=== PATIENT | male | born 1985 | race Caucasian/White ===

== ENCOUNTER 2016-11-16 22:48 | Emergency (ER) | payer OTHER ==
--- NOTE | 2016-11-17 00:27 | DIAGNOSTIC IMAGING REPORT ---
PROCEDURE: XR CHEST 2 VIEW INDICATION: CHEST PAIN TECHNIQUE: PA and lateral view. COMPARISON: Chest x-ray 04/13/2016. FINDINGS: Lungs are clear. Cardiovascular structures are normal. Bony thorax is unremarkable. No significant interval change. IMPRESSION: 1. Negative chest.
--- NOTE | 2016-11-17 02:06 | ED ORDER SUMMARY ---
..... 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 ) (23:00 11/16/2016 Maia Sadler) (Cancelled: Duplicate Order23:05 Maia Sadler) CBC w Diff Urgent (23:01 11/16/2016 Maia Sadler) (23:01 Latonia R.N.) CMP Urgent (23:11/16/2016 Maia Sadler) (23:01 Latonia R.N.) UA-Culture if indicated Urgent (23:01 11/16/2016 Maia Sadler) (Ack 23:08 AMcQuoid ER Tech1) (23:30 AMcQuoid ER Tech1) PT with INR Urgent (23:01 11/16/2016 Maia Sadler) (23:01 Laotnia R.N.) PTT Urgent (23:01 11/16/2016 Maia Sadler) (23:01 REMIGIOnebel R.N.) Urine Drug Screen Urgent (23:01 11/16/2016 Maia Sadler) (Ack 23:08 AMcQuoid ER Tech1) (23:30 AMcQuoid ER Tech1) Ethyl Alcohol Urgent (23:01 11/16/2016 Maia Sadler) (23:01 REMIGIOnebel R.N.) Type & Screen Urgent (23:01 11/16/2016 Maia Sadler) (23:01 REMIGIOnebel R.N.) (Cancelled: Other23:09 AMcQuoid ER Tech1) Pulse oximeter (23:01 11/16/2016 Maia Sadler) (23:07 REMIGIOnebel R.N.) Supervisor Hand Workers (Continuous) (dizziness) (23:05 11/16/2016 Maia Sadler) (23:07 REMIGIOnebel R.N.) Chest 2V Urgent (23:41 11/16/2016 Maia Sadler) (Ack 23:43 AMcQuoid ER Tech1) (0:11 AMcQuoid ER Tech1) Troponin-I Urgent (23:41 11/16/2016 Maia Sadler) (23:43 AMcQuoid ER Tech1) EKG - ER Stat (23:41 11/16/2016 Maia Sadler) (Ack 23:43 AMcQuoid ER Tech1) (23:50 IJurca ER Tech1) D-Dimer Urgent (23:49 11/16/2016 Maia Sadler) (23:54 AMcQuoid ER Tech1) Troponin-I (redraw 2 hours after first draw) Urgent (00:30 11/17/2016 Maia Sadler) (Ack 0:38 AMcQuoid ER Tech1) (1:06 AMcQuoid ER Tech1) MEDICATION ORDERS: Meclizine PO 25 mg (NOW) (01:16 11/17/2016 Maia Sadler) (Ack 1:18 HSoule) (1:21 HSoule) IV FLUIDS: IV NS : initial bolus 1000 mL (1000 mL/hr), then none - for X1 (NOW) (23:01 11/16/2016 Maia Sadler) (23:07 Latonia R.NBobby) IV NS : initial bolus 1000 mL (1000 mL/hr), then none - for X1 (NOW) (23:41 11/16/2016 Maia Sadler) (Ack 23:42 HSoule) (23:52 HSoule) ORDER SHEET NOTES: [Electronically signed by Joy Harris R.N. (02:21 11/17/2016)] [Electronically signed by Carroll Roberts Dr. (16:31 11/21/2016)] [Electronically locked/signed by Joy Harris R.N. (02:11/17/2016)]
--- NOTE | 2016-11-17 02:06 | ED NURSING NOTES ---
Clinical Report - Nurses [facility] [address] [place] [address] 11/16/2016 22:50 Patient: ALEXY MCKINNEY TRIAGE Triage time 22:52 Nov 16 2016. Acuity: LEVEL 3. Chief Complaint: WEAKNESS. Alert. No acute distress. SEPSIS SCREEN: Sepsis Screen: negative. Negative (no infection suspected/documented). ZACH COMA SCORE: [place] Coma Scale: 15- eyes open spontaneously (4); best verbal response- oriented x 4 (5); best motor response- obeys commands (6). --22:57 Lolly Braxton R.N. 22:52 11/16/16. BP: 121/65. HR: 104. RR: 16. O2 saturation: 97%. Temp: 99.8 F. Pain level now: 12/04. --22:57 Lolly Braxton R.N. Weight: 117.9 kg stated. Height/Length: 68 inches Per Patient. BMI: 39.5. --22:56 Lolly Braxton R.N. Medications Vicodin Oral. --22:53 Lolly Braxton R.N. Paxil Oral. --22:53 Lolly Braxton R.N. Cymbalta Oral. --22:53 Lolly Braxton R.N. Gabapentin Oral. --22:53 Lolly Braxton R.N. Atenolol Oral. --22:53 Lolly Braxton R.N. Allergies None. --22:54 Lolly Braxton R.N. History Arrived by EMS. Historian: patient. This started just prior to arrival. He has had dizziness. Treatment MAINTENANCE SUPERINTENDENT: None. PAST MEDICAL HX: Immunizations: up-to-date. SOCIAL HX: Former smoker, end date 2003. Occasional alcohol use. No drug use. No infectious disease exposure. SELF HARM ASSESSMENT: A self harm assessment was performed. The patient answered "no" to the question "Do you have thoughts of harming or killing yourself?". FALL RISK ASSESSMENT: Fall risk assessment completed. No fall risk identified. NUTRITIONAL RISK ASSESSMENT: The nutritional risk assessment revealed no deficiencies. FUNCTIONAL ASSESSMENT: Functional assessment: no impairments noted. LEARNING NEEDS ASSESSMENT: The learning needs assessment revealed no barriers. ABUSE ASSESSMENT: Abuse assessment: The patient was asked "Do you feel safe in your home?". SKIN INTEGRITY ASSESSMENT: Skin integrity risk assessment completed. No skin integrity risk identified. --22:57 Lolly Braxton R.N. PROBLEMS: Diarrhea. Lifestyle / Substance Problems. Gastroesophageal Reflux. Suicidal Ideation. Atypical Chest Pain. Chest Pain of GI Origin. Mental Illness. Anxiety Reaction. Palpitations. Chest Pain. Dizziness. Abdominal Pain. Abd pain discomfort . Depression. Obsessive Compulsive Disorder. ADHD - Attention Deficit Hyperactivity Disorder. Back Pain. --22:54 Lolly Braxton R.N. ADDITIONAL SURGERIES: Appendectomy. Septoplasty. Tendon lengthening in rt leg. --22:54 Lolly Braxton R.N. Interventions ID band on patient. To room. --22:57 Lolly Braxton R.N. PHYSICAL ASSESSMENT GENERAL / NEURO / PSYCH: Oriented X 4. Appears anxious. Speech normal. Mood/affect normal. HEENT: No facial asymmetry noted. RESPIRATORY: Respirations not labored. CVS: Capillary refill less than 2 seconds. SKIN: Skin is warm but moist. --22:57 Lolly Braxton R.N. NURSING PROGRESS NOTES 22:58 11/16/2016 Site #1 started via IV in the left antecubital space with an 20g angiocath, with aseptic technique and good blood return; one attempt. Blood drawn: rainbow set. Labeled in the presence of the patient and sent to the lab. Saline lock flushed with 10 mL saline. --22:58 Lolly Braxton R.N. Patient gowned. Head of bed elevated. Patient identifiers checked. Call light placed in reach. Side rails up x 1. Bed placed in lowest position. Brakes of bed on. --22:58 Lolly Braxton R.N. 23:07 11/16/2016 Started bag #1 1000 mL IV Fluids IV NS (Saline); bolus of 1000 mL over 1 hour(s) via site #1. Allergies verified and confirmed 5 rights. IV patency established. IV site checked: no pain, redness, or swelling. IV flushed thoroughly pre- and post-medication administration. --23:07 Lolly Braxton R.N. Care transferred and report given (Alise HUTTON). --23:13 Lolly Braxton R.N. 23:30. Checked patient name and birthdate urine collected; sample sent to lab. Specimen labeled in the presence of the patient (patient voided 500 mL per urinal). --23:30 Carole Moya, ER Tech1 EKG time: (9). EKG was ordered, performed by a tech and shown to the ED physician. --23:49 Jarvis Rodarte ER Tech1 23:00 11/16/2016 Started bag #1 1000 mL IV Fluids IV NS (Saline); at 1000 mL/hr over 1 hour(s) via site #1. Allergies verified and confirmed 5 rights. IV patency established. IV site checked: no pain, redness, or swelling. IV flushed thoroughly pre- and post-medication administration. --23:52 Alise Jose 00:08. Patient transported to radiology by stretcher with tech. --00:08 McCaorle Leblanc, ER Tech1 00:11. Patient returned from radiology by stretcher with tech. --00:11 Nita Carole, ER Tech1 00:13 11/17/16. BP: 108/58. HR: 100. RR: 20. O2 saturation: 98% on room air. --00:13 Alise Jose 01:00. Checked patient name and birthdate: patient confirmed. Blood samples drawn from the right antecubital space by tech per protocol ; labeled in presence of the patient and sent to lab: ann marie cordova. --01:06 Carole Moya, ER Tech1 00:05 11/17/2016 IV Fluids IV NS Discontinued: bag #1 completed. Total amount infused: 1000 mL. IV patency established. IV site checked: no pain, redness, or swelling. IV flushed thoroughly. --01:22 Alise Jose 00:05 11/17/2016 IV Fluids IV NS Discontinued: bag #1 STOPPED. Total amount infused: 1000 mL. IV patency established. IV site checked: no pain, redness, or swelling. IV flushed thoroughly. --02:17 Joy Harris R.N. 01:21 11/17/2016 Meclizine PO Tablets 25 mg given. Allergies verified, confirmed 5 rights and sedative warning given to the patient. --01:21 RebecaEmmanuel waynenah 01:22 11/17/16. BP: 101/64. HR: 100. RR: 20. O2 saturation: 94% on room air. --01:22 Alise Jose. DISPOSITION / DISCHARGE 02:13 11/17/2016 Site #1 removed upon discharge. Catheter intact. Manual pressure and bandage applied. --02:18 Joy Harris R.N. Departure time: 212. Condition at departure: improved. No learning barriers present. Discharge instructions provided and reviewed with the patient. Patient verbalized understanding. Written instructions provided in Bruneian. The patient was discharged by the physician. He was discharged home. He left the Emergency Department ambulatory and via (ambulatory). Patient driving. --02:21 Joy Harris R.N. 02:17 11/17/16. BP: 99/59. HR: 94. RR: 16. O2 saturation: 96% on room air. Temp: deferred. Pain level now: 0/10. --02:21 Joy Harris R.N. Locked/Released at 11/17/2016 2:21 by Joy Harris R.N.
--- NOTE | 2016-11-17 02:06 | ED CLINICAL REPORT ---
Clinical Report - Physicians/Mid Levels [facility] [address] [place] [address] 11/16/2016 22:50 Patient: ALEXY MCKINNEY Time Seen: 2255. Arrived- By private vehicle. Historian- patient. HISTORY OF PRESENT ILLNESS Chief Complaint: CHEST PAIN. At its maximum, severity described as mild. When seen in the E.D., severity described as mild. Modifying factors. Not worsened by anything. Not relieved by anything. It is described as pressure and it is described as located in the central chest area. No radiation. This started today and is still present (unchanged). It was abrupt in onset and has been constant but is not gone now. Onset during rest. No nausea or vomiting. (dizziness, bilateral leg weakness, and tingling of the whole face.). No additional chest pain. Similar symptoms previously: None. Recent medical care: Not recently seen/assessed. REVIEW OF SYSTEMS No skin rash. All systems otherwise negative, except as recorded above. PAST HISTORY See nurses notes. Medications: Atenolol Oral. Gabapentin Oral. Cymbalta Oral. Paxil Oral. Vicodin Oral. Allergies: None. SOCIAL HISTORY Never smoker. No alcohol use or drug use. No recent travel. Is a local resident. [employer]. currently playing [employer] with his significant other. FAMILY HISTORY Negative. ADDITIONAL NOTES The nursing notes have been reviewed. PHYSICAL EXAM Vital Signs: 11/16/2016 22:52 BP: 121/65. HR: 104. RR: 16. O2 saturation: 97%. Temp: 99.8 F. Pain level now: 5/10. Blood pressure normal. Oxygen saturation normal. Appearance: Alert. Oriented X3. No acute distress. Eyes: Pupils equal, round and reactive to light. Eyes normal inspection. No pale conjunctivae. ENT: Ears normal. Nose normal. Pharynx normal. Neck: Normal inspection. Neck supple. CVS: Normal heart rate and rhythm. Heart sounds normal. Pulses normal. Respiratory: No respiratory distress. Breath sounds normal. Chest nontender. Abdomen: Soft and nontender. Bowel sounds normal. No mass. Skin: Skin warm and dry. Normal skin color. No rash. Normal skin turgor. Extremities: Extremities exhibit normal ROM. No lower extremity edema. LABS, X-RAYS, AND EKG EKG: Narrow-complex tachycardia (101). Sinus tachycardia. Normal P waves. Normal EM. Normal QRS complex. Normal axis. Normal ST and T waves, QT and QTc. The study has been interpreted contemporaneously. The study has been independently viewed by me. The EKG appears to be a good tracing. Chest X-ray: (PROCEDURE: XR CHEST 2 VIEW INDICATION: CHEST PAIN TECHNIQUE: PA and lateral view. COMPARISON: Chest x-ray 04/13/2016. FINDINGS: Lungs are clear. Cardiovascular structures are normal. Bony thorax is unremarkable. No significant interval change. IMPRESSION: 1. Negative chest.). Views: PA and lateral. Technique: good. The X-rays were independently viewed by me and interpreted by the radiologist. The X-rays were discussed with the radiologist (via). Laboratory Tests: Troponin-I: (DALLIN: 11/17/2016 01:03) ( [facility] 11/17/2016 01:24) Final results Test Result Flag Units (Reference) TROPONIN I <0.05 L ng/mL (0.00-1.5) TROPONIN REFERENCE RANGE:<0.1 NEGATIVE0.1-1.5 INDETERMINANT>1.5 POSITIVE UA-Culture if indicated: (DALLIN: 11/16/2016 23:25) ( [facility] 11/16/2016 23:45) Final results Test Result Flag Units (Reference) URINE COLOR YELLOW URINE APPEARANCE CLEAR URINE GLUCOSE NEGATIVE (NEGATIVE) URINE BILIRUBIN NEGATIVE (NEGATIVE) URINE KETONE NEGATIVE (NEGATIVE) URINE SPECIFIC GRAVITY <= 1.005 L (1.010-1.030) URINE PH 5.5 (5.0-8.0) URINE PROTEIN NEGATIVE (NEGATIVE) URINE UROBILINOGEN 0.2 EU/dL (0.2-1.0) URINE NITRITE NEGATIVE (NEGATIVE) URINE BLOOD NEGATIVE (NEGATIVE) URINE LEUK ESTERASE NEGATIVE (NEGATIVE) URINE RBC NONE SEEN rbc/hpf (0-1) URINE WBC NONE SEEN wbc/hpf (0-1) URINE EPITHELIAL CELLS NONE SEEN EPI/hpf (0-5) URINE BACTERIA NONE SEEN (NONE SEEN) URINE COMMENT CULT NOT INDICATED URINE CULTURES ARE SET-UP BASED ON THE FOLLOWING CRITERIA:POSITIVE NITRITEPOSITIVE LEUKOCYTE ESTERASEGREATER THAN 10 WHITE BLOOD CELLSMODERATE (2+) OR GREATER BACTERIA CBC w Diff: (DALLIN: 11/16/2016 22:50) ( [facility] 11/16/2016 23:12) Final results Test Result Flag Units (Reference) WHITE BLOOD COUNT 8.8 K/uL (4.5-11.5) RED BLOOD COUNT 4.99 M/uL (4.50-5.90) HEMOGLOBIN 15.8 gm/dL (13.5-17.5) HEMATOCRIT 46.5 % (41.0-53.0) MEAN CELL VOLUME 93 fL (80-100) MEAN CORPUSCULAR HGB 32 pg (26-34) MEAN CORPUSCULAR HGB CONC 34 g/dL (31-37) RED CELL DISTRIBUTION WIDTH 13.5 % (11.6-14.8) PLATELET COUNT 208 K/uL (150-400) NEUTROPHIL % 50.2 % (50-75) LYMPH % 34.9 % (25-40) MONO % 10.7 % (3-14) EOSINOPHIL % 3.9 % (0-4) BASOPHIL % 0.3 % (0-2) [id number]: (DALLIN: 11/16/2016 22:50) ( [facility] 11/17/2016 00:04) Final results Test Result Flag Units (Reference) D-DIMER QUANTITATIVE < 0.27 L ug/mLFEU (0.27-0.52) The primary value of this quantitative assay relates toits negative predictive value (i.e. exclusion) of pulmonaryembolism/deep vein thrombosis/DIC.Elevated levels of d-dimer may also occur with:, age, cancer, inflammation, liver disease,post-op, infection, hematoma, coronary disease, peripheralarteriopathy, bleeding disorders and thrombolytic treatment.Results should be correlated with other clinical andradiological data.Testing Methodology: Latex Immunoassay PT with INR: (DALLIN: 11/16/2016 22:50) ( [facility] 11/16/2016 23:22) Final results Test Result Flag Units (Reference) INR 0.9 (0.8-1.2) Low Intensity Therapy: INR 1.5-2.0 PT range 18.5-23.1Mod.Intensity Therapy: INR 2.0-3.0 PT range 23.1-31.5High Intensity Therapy: INR 2.5-3.5 PT range 27.4-35.5High Intensity Therapy 2: INR 3.0-4.0 PT range 31.5-39.3 APTT 26 SECONDS (24-34) Troponin-I: (DALLIN: 11/16/2016 22:50) ( [facility] 11/17/2016 00:03) Final results Test Result Flag Units (Reference) TROPONIN I <0.05 L ng/mL (0.00-1.5) TROPONIN REFERENCE RANGE:<0.1 NEGATIVE0.1-1.5 INDETERMINANT>1.5 POSITIVE Urine Drug Screen: (DALLIN: 11/16/2016 23:25) ( [facility] 11/16/2016 23:53) Final results Test Result Flag Units (Reference) AMPHETAMINE/METHAMPHETAMINE NEGATIVE (NEGATIVE) BARBITURATE NEGATIVE (NEGATIVE) BENZODIAZEPINE NEGATIVE (NEGATIVE) CANNABINOID NEGATIVE (NEGATIVE) COCAINE NEGATIVE (NEGATIVE) ECSTASY NEGATIVE (NEGATIVE) METHADONE NEGATIVE (NEGATIVE) OPIATE NEGATIVE (NEGATIVE) The urine drug screen is a qualitative screening test fordrug overdose and abuse. All screen results should beconsidered as presumptive.Drugs screened for are as follows:BenzodiazepinesCocaineAmphetamines/MetamphetaminesTHC (Tetrahydrocannabinol)OpiatesBarbituratesEcstasyMethadonePositive results are unconfirmed. For confirmation, notifythe lab for the specimen to be sent to the reference lab.All confirmations must be performed by a differentmethodology.The ingestion of natural herbal and plant productscontaining Ephedra/Ephedra metabolites can produce in urineone or more substances capable of cross reacting withamphetamine/methamphetamine immunoassays. These testsprovide a preliminary result only. A more specificalternative chemical method must be used to obtain aconfirmed analytical result. CMP: (DALLIN: 11/16/2016 22:50) ( Msg[facility] 11/16/2016 23:26) Final results Test Result Flag Units (Reference) GLUCOSE 124 H mg/dL (70-110) BUN 14 mg/dL (7-18) CREATININE 1.0 mg/dL (0.6-1.3) Estimated GFR >60 mL/min Estimated GFR- >60 mL/min Note: Persistent reduction over 3 months in eGFR<60 mL/min/1.73 m2 defines CKD. Patients with eGFR values>=60 mL/min/1.73 m2 may also have CKD if evidence ofpersistent proteinuria. Additional information may be foundat www.kidney.org. SODIUM 141 mmol/L (136-145) POTASSIUM 4.0 mmol/L (3.5-5.1) CHLORIDE 103 mmol/L (98-107) CARBON DIOXIDE 29 mmol/L (21-32) CALCIUM 9.2 mg/dL (8.5-10.1) TOTAL PROTEIN 7.6 g/dL (6.4-8.2) ALBUMIN 4.1 g/dL (3.3-5.0) BILIRUBIN, TOTAL 0.3 mg/dL (0.0-1.0) ALKALINE PHOSPHATASE 62 U/L (46-116) AST (SGOT) 23 U/L (15-37) ALT (SGPT) 35 U/L (12-78) ETHYL ALCOHOL <3 L mg/dL (3-10) . PROGRESS AND PROCEDURES Course of Care: the patient is a 31-year-old male with past medical history significant for anxiety presenting for evaluation of dizziness and chest pain. The patient will be evaluated with the [place] syncope role. Patient without any other concerning symptoms at this time. No shortness of breath, numbness, weakness, tingling. Neurological exam is unremarkable. Patient is agreeable to the treatment plan. Because the onset of the patient's chest pain, patient will be evaluated with a delta troponin. We'll also order complete blood cell count chest x-ray, EKG, D-dimer, and CMP. The patient's initial workup was noted for no acute abnormalities. Troponin is noted to be negative. Chest x-ray is clear. EKG is unchanged from prior EKG. No signs of acute ischemia noted. No conduction abnormalities. d-dimer was ordered because of the patient's tachycardia and not PE RC negative. Patient's d-dimer is noted to be negative. Do not feel patient has dissecting aortic aneurysm or pulmonary embolism. Patient's second troponin had returned. Continues to be less than detectable range. Because of the patient's negative workup, and patient being low risk for coronary artery disease, feel the patient is stable outpatient candidate. Do not feel further workup here in emergency department is Warranted. Do not fill patient is being admitted to the hospital. Had a discussion with the patient in regards to chest pain and return precautions as well as his diagnosis and workup here in the emergency department including follow-up and home care. All questions have been answered. The patient expressed understanding of these instructions and was agreeable to them. Disposition: Discharged. Condition: good. CLINICAL IMPRESSION Chest pain characterized as "discomfort" .12 lead EKG performed. 11/17/2016 01:22 BP: 101/64. HR: 100. RR: 20. O2 saturation: 94%. 11/17/2016 00:13 BP: 108/58. HR: 100. RR: 20. O2 saturation: 98%. Blood pressure normal. Oxygen saturation normal. INSTRUCTIONS Warnings: GENERAL WARNINGS: Return or contact your physician immediately if your condition worsens or changes unexpectedly, if not improving as expected, or if other problems arise. SPECIFICALLY, return if you develop chest, neck, jaw, shoulder, arm, or back pain, difficulty breathing, a fluttering sensation in your chest, lightheadedness, fainting, excessive fatigue, or sudden sweating. Your Current Medications: CONTINUE TAKING THE FOLLOWING MEDICATIONS: Atenolol Oral. Cymbalta Oral. Gabapentin Oral. Paxil Oral. Vicodin Oral. Follow-up: Return to the emergency department as needed. Follow up with your doctor in three days. Reason for referral: recheck today's concerns. Summary of care provided to patient via paper. Screening today revealed the patient's blood pressure to be in the normal range. The patient should follow up with a primary care provider for blood pressure management. Understanding of the discharge instructions verbalized by patient. (Electronically signed by Carroll Roberts Dr. 11/21/2016 16:31)
--- NOTE | 2016-11-17 02:06 | ED ORDER SUMMARY ---
..... 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 ) (23:00 11/16/2016 Maia Sadler) (Cancelled: Duplicate Order23:05 Maia Sadler) CBC w Diff Urgent (23:01 11/16/2016 Maia Sadler) (23:01 Latonia R.N.) CMP Urgent (23:11/16/2016 Maia Sadler) (23:01 Latonia R.N.) UA-Culture if indicated Urgent (23:01 11/16/2016 Maia Sadler) (Ack 23:08 AMcQuoid ER Tech1) (23:30 AMcQuoid ER Tech1) PT with INR Urgent (23:01 11/16/2016 Maia Sadler) (23:01 Latonia R.N.) PTT Urgent (23:01 11/16/2016 Maia Sadler) (23:01 REMIGIOnebel R.N.) Urine Drug Screen Urgent (23:01 11/16/2016 Maai Sadler) (Ack 23:08 AMcQuoid ER Tech1) (23:30 AMcQuoid ER Tech1) Ethyl Alcohol Urgent (23:01 11/16/2016 Maia Sadler) (23:01 REMIGIOnebel R.N.) Type & Screen Urgent (23:01 11/16/2016 Maia Sadler) (23:01 REMIGIOnebel R.N.) (Cancelled: Other23:09 AMcQuoid ER Tech1) Pulse oximeter (23:01 11/16/2016 Maia Sadler) (23:07 REMIGIOnebel R.N.) 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) (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) (23:05 11/16/2016 Maia Sadler) (23:07 REMIGIOnebel R.N.) Chest 2V Urgent (23:41 11/16/2016 Maia Sadler) (Ack 23:43 AMcQuoid ER Tech1) (0:11 AMcQuoid ER Tech1) Troponin-I Urgent (23:41 11/16/2016 Maia Sadler) (23:43 AMcQuoid ER Tech1) EKG - ER Stat (23:41 11/16/2016 Maia Sadler) (Ack 23:43 AMcQuoid ER Tech1) (23:50 IJurca ER Tech1) D-Dimer Urgent (23:49 11/16/2016 Maia Sadler) (23:54 AMcQuoid ER Tech1) Troponin-I (redraw 2 hours after first draw) Urgent (00:30 11/17/2016 Maia Sadler) (Ack 0:38 AMcQuoid ER Tech1) (1:06 AMcQuoid ER Tech1) MEDICATION ORDERS: Meclizine PO 25 mg (NOW) (01:16 11/17/2016 Maia Sadler) (Ack 1:18 HSoule) (1:21 HSoule) IV FLUIDS: IV NS : initial bolus 1000 mL (1000 mL/hr), then none - for X1 (NOW) (23:01 11/16/2016 Maia Sadler) (23:07 Latonia R.NBobby) IV NS : initial bolus 1000 mL (1000 mL/hr), then none - for X1 (NOW) (23:41 11/16/2016 Maia Sadler) (Ack 23:42 HSoule) (23:52 HSoule) ORDER SHEET NOTES: [Electronically signed by Joy Harris R.N. (02:21 11/17/2016)] [Electronically signed by Carroll Roberts Dr. (16:31 11/21/2016)] [Electronically locked/signed by Joy Harris R.N. (02:11/17/2016)]
--- NOTE | 2016-11-21 16:31 | ED MED RECONCILIATION SUMMARY ---
Patient: ALEXY MCKINNEY Medication Reconciliation Report [facility] VisitID: [id number] [address] [place] [address] 31y, M Registration Date/Time: 11/16/2016 Weight: 117.9 kg Height/Length: 68 in. BMI: 39.5 ALLERGIES: None The patient's Home Medications are listed below: CONTINUE TAKING THE FOLLOWING MEDICATIONS: Atenolol Oral Cymbalta Oral Gabapentin Oral Paxil Oral Vicodin Oral The source(s) of the original Home Medication information: Not obtained. The following Medications were given to the patient in the Emergency Department: IV NS IV Fluids bolus 1000 mL over 1 hour(s), administered: 11/16/2016 11:07:00 PM IV NS IV Fluids bolus 0, then 1000 mL/hr, administered: 11/16/2016 11:00:00 PM Meclizine [PO] PO 25 mg, administered: 11/17/2016 1:21:00 AM The following Medications were prescribed to the patient: None.
--- NOTE | 2016-11-21 16:31 | ED MAR SUMMARY ---
..... Medication Administration Record [facility] [address] [place] [address] Patient: ALEXY MCKINNEY Visit ID: [id number] 31y, M Weight: 117.9 kg Height/Length: 68 in BMI: 39.5 ALLERGIES: None Start 23:00 11/16/2016 Alise Jose,, Stop 00:05 11/17/2016 Alise Jose, Medication Administered: IV NS (SALINE), Dose: IV Fluids over 1 hour(s), Rate: 1000 mL/hr, Dispensed: 1000 mL bag, Site: #1 left AC. Medication Ordered: IV NS : initial bolus 1000 mL (1000 mL/hr), then none - for X1 (NOW). Start 23:07 11/16/2016 Lolly Braxton, RSasha., Stop 00:05 11/17/2016 Joy Harris R.N. Medication Administered: IV NS (SALINE), Dose: IV Fluids, Bolus: 1000 mL over 1 hour(s), Dispensed: 1000 mL bag, Site: #1 left AC. Medication Ordered: IV NS : initial bolus 1000 mL (1000 mL/hr), then none - for X1 (NOW). Given 01:21 11/17/2016 Alise Jose, Medication Administered: MECLIZINE [PO], Dose: 25 mg Tablets PO. Medication Ordered: Meclizine PO 25 mg (NOW).
--- NOTE | 2016-11-21 16:31 | ED DISCHARGE INSTRUCTIONS ---
Patient: ALEXY MCKINNEY General Instructions [facility] VisitID: [id number] [address] [place] [address] 31y, M Registration Date/Time: 11/16/2016 Chest pain characterized as "discomfort" .12 lead EKG performed. 11/17/2016 01:22 BP: 101/64. HR: 100. RR: 20. O2 saturation: 94%. 11/17/2016 00:13 BP: 108/58. HR: 100. RR: 20. O2 saturation: 98%. Blood pressure normal. Oxygen saturation normal. INSTRUCTIONS Warnings: GENERAL WARNINGS: Return or contact your physician immediately if your condition worsens or changes unexpectedly, if not improving as expected, or if other problems arise. SPECIFICALLY, return if you develop chest, neck, jaw, shoulder, arm, or back pain, difficulty breathing, a fluttering sensation in your chest, lightheadedness, fainting, excessive fatigue, or sudden sweating. Your Current Medications: CONTINUE TAKING THE FOLLOWING MEDICATIONS: Atenolol Oral. Cymbalta Oral. Gabapentin Oral. Paxil Oral. Vicodin Oral. Follow-up: Return to the emergency department as needed. Follow up with your doctor in three days. Reason for referral: recheck today's concerns. Summary of care provided to patient via paper. Screening today revealed the patient's blood pressure to be in the normal range. The patient should follow up with a primary care provider for blood pressure management. Understanding of the discharge instructions verbalized by patient. ADDITIONAL INFORMATION Chest Pain, Uncertain Cause Chest pain can happen for a number of reasons. Sometimes the cause can not be determined. If yourcondition does not seem serious, and your pain does not appear to be coming from your heart, your doctor may recommend watching it closely. Sometimes the signs of a serious problem take more time to appear. Therefore, watch for the warning signs listed below. Home care After your visit, follow these recommendations: Rest today and avoid strenuous activity. Take any prescribed medicine as directed. Follow-up care Follow up with your doctor or this facility as instructed or if you do not start to feel better within 24 hours. Call 911 Get immediate medical attention if any of the following occur: A change in the type of pain: if it feels different, becomes more severe, lasts longer, or begins to spread into your shoulder, arm, neck, jaw or back Shortness of breath or increased pain with breathing Weakness, dizziness, or fainting Rapid heart beat Get prompt medical attention Call your doctor right away if any of the following occur: Cough with dark colored sputum (phlegm) or blood Fever of 100.4F(38C) or higher, or as directed by your health care provider Swelling, pain or redness in one leg You have been given the following additional information: Chest Pain, Uncertain Cause (Electronically signed by Carroll Roberts Dr. 11/21/2016 16:31)
--- NOTE | 2016-11-21 16:31 | ED MED RECONCILIATION SUMMARY ---
Patient: ALEXY MCKINNEY Medication Reconciliation Report [facility] VisitID: [id number] [address] [place] [address] 31y, M Registration Date/Time: 11/16/2016 Weight: 117.9 kg Height/Length: 68 in. BMI: 39.5 ALLERGIES: None The patient's Home Medications are listed below: CONTINUE TAKING THE FOLLOWING MEDICATIONS: Atenolol Oral Cymbalta Oral Gabapentin Oral Paxil Oral Vicodin Oral The source(s) of the original Home Medication information: Not obtained. The following Medications were given to the patient in the Emergency Department: IV NS IV Fluids bolus 1000 mL over 1 hour(s), administered: 11/16/2016 11:07:00 PM IV NS IV Fluids bolus 0, then 1000 mL/hr, administered: 11/16/2016 11:00:00 PM Meclizine [PO] PO 25 mg, administered: 11/17/2016 1:21:00 AM The following Medications were prescribed to the patient: None.
--- NOTE | 2016-11-21 16:31 | ED MAR SUMMARY ---
..... Medication Administration Record [facility] [address] [place] [address] Patient: ALEXY MCKINNEY Visit ID: [id number] 31y, M Weight: 117.9 kg Height/Length: 68 in BMI: 39.5 ALLERGIES: None Start 23:00 11/16/2016 Alise Jose,, Stop 00:05 11/17/2016 Alise Joes, Medication Administered: IV NS (SALINE), Dose: IV Fluids over 1 hour(s), Rate: 1000 mL/hr, Dispensed: 1000 mL bag, Site: #1 left AC. Medication Ordered: IV NS : initial bolus 1000 mL (1000 mL/hr), then none - for X1 (NOW). Start 23:07 11/16/2016 Lolly Braxton, RSasha., Stop 00:05 11/17/2016 Joy Harris R.N. Medication Administered: IV NS (SALINE), Dose: IV Fluids, Bolus: 1000 mL over 1 hour(s), Dispensed: 1000 mL bag, Site: #1 left AC. Medication Ordered: IV NS : initial bolus 1000 mL (1000 mL/hr), then none - for X1 (NOW). Given 01:21 11/17/2016 Alise Jose, Medication Administered: MECLIZINE [PO], Dose: 25 mg Tablets PO. Medication Ordered: Meclizine PO 25 mg (NOW).
== END 2016-11-17 02:13 | disposition home or self-care (01) ==
LOC: ED SRH 22:48
DX: R07.89 Other chest pain (principal); Z79.891 Long term (current) use of opiate analgesic; Z79.899 Other long term (current) drug therapy
CPT/HCPCS: 90001; 90004; 90100; 90155; 90616; 91004; 91556; 92010; 92760; 92761; 92762; 92763; 92764; 92765; 92766; 92767; 94001; 94060; 95059

== ENCOUNTER 2016-11-27 19:20 | Emergency (ER) | payer OTHER ==
--- NOTE | 2016-11-27 20:06 | DIAGNOSTIC IMAGING REPORT ---
PROCEDURE: CT HEAD WITHOUT CONTRAST INDICATION: Speech difficulty x1 week. TECHNIQUE: Noncontrast axial images with sagittal and coronal reformations. COMPARISON: None. FINDINGS: Sulci, ventricular system, and brain parenchyma are normal. No evidence of acute intracranial process. Visualized mastoids and sinuses are clear. IMPRESSION: 1. Negative non-enhanced head CT. 2. Findings discussed with GERRY Henry at 08:05 p.m.[facility] Time
--- NOTE | 2016-11-27 20:06 | DIAGNOSTIC IMAGING REPORT ---
PROCEDURE: CT HEAD WITHOUT CONTRAST INDICATION: Speech difficulty x1 week. TECHNIQUE: Noncontrast axial images with sagittal and coronal reformations. COMPARISON: None. FINDINGS: Sulci, ventricular system, and brain parenchyma are normal. No evidence of acute intracranial process. Visualized mastoids and sinuses are clear. IMPRESSION: 1. Negative non-enhanced head CT. 2. Findings discussed with GERRY Henry at 08:05 p.m.[facility] Time
--- NOTE | 2016-11-27 21:46 | ED ORDER SUMMARY ---
..... Patient: ALEXY MCKINNEY OrderSheet [facility] VisitID: [id number] [place] [address] 31y, M Registration Date/Time: 11/27/2016 ORDER SHEET Weight: 117.9 kg (stated) Allergies: None GENERAL ORDERS: CT Head wo Cont Urgent (19:34 11/27/2016 EKoroleva P.A.-C) (Ack 19:36 CHagerty ER Picker / Packer) (20:02 MCampbell) CBC w Diff Urgent (19:34 11/27/2016 EKoroleva P.A.-C) (Ack 19:36 CHagerty ER Picker / Packer) (19:43 DDavis R.N.) CMP Urgent (19:34 11/27/2016 EKoroleva P.A.-C) (Ack 19:36 CHagerty ER Picker / Packer) (19:43 DDavis R.N.) Vitals - Orthostatic (20:56 11/27/2016 EKoroleva P.A.-C) (21:14 DDavis R.N.) MEDICATION ORDERS: Meclizine PO 25 mg (NOW) (20:11 11/27/2016 EKoroleva P.A.-C) (20:19 DDavis R.N.) IV FLUIDS: IV NS : initial bolus 1000 mL (1000 mL/hr), then 1000 mL/hr for X1 (NOW); [place] (19:34 11/27/2016 EKoroleva P.A.-C) (19:44 DDavis R.N.) Valium IV 2 mg (HIGH ALERT MEDICATION, NOW) (21:11 11/27/2016 EKoroleva P.A.-C) (21:33 DDavis R.N.) ORDER SHEET NOTES: [Electronically signed by Shaista AlbrightABobby-C (22:32 11/27/2016)] [Electronically signed by Dhaval Lay R.N. (23:16 11/27/2016)] [Electronically locked/signed by Dhaval Lay R.N. (23:16 11/27/2016)]
--- NOTE | 2016-11-27 21:46 | ED NURSING NOTES ---
Clinical Report - Nurses [address] [place] [address] 11/27/2016 19:21 Patient: ALEXY MCKINNEY TRIAGE Triage time 19:27. Acuity: LEVEL 3. Chief Complaint: ("forgetting words"). Alert. LILLY COMA SCORE: Lilly Coma Scale: 15- eyes open spontaneously (4); best verbal response- oriented x 4 (5); best motor response- obeys commands (6). --19:34 Dhaval Lay R.N. 19:27 11/27/16. BP: 156/93 taken while sitting. HR: 110. RR: 24. O2 saturation: 96% on room air. Temp: 97.7 F (oral). Pain level now: 0/10. --19:34 Dhaval Lay R.N. Weight: 117.9 kg stated. Height/Length: 68 inches Per Patient. BMI: 39.5. --19:27 Dhaval Lay R.N. Medications Atenolol Oral. Cymbalta Oral. Gabapentin Oral. Paxil Oral. Vicodin Oral. --19:30 Dhaval Lay R.N. Allergies None. --19:30 Dhaval Lay R.N. History Arrived by private vehicle. Historian: patient. Unaccompanied. Onset. (2 weeks ago). ( intermittent for 2 weeks). SOCIAL HX: Never smoker. No alcohol use or drug use. ( Denies SI/HI). SELF HARM ASSESSMENT: A self harm assessment was performed. The patient answered "no" to the question "Do you have thoughts of harming or killing yourself?" and "Are you here because you tried to hurt yourself?". FALL RISK ASSESSMENT: Fall risk assessment completed. No fall risk identified. NUTRITIONAL RISK ASSESSMENT: The nutritional risk assessment revealed no deficiencies. FUNCTIONAL ASSESSMENT: Functional assessment: no impairments noted. LEARNING NEEDS ASSESSMENT: The learning needs assessment revealed no barriers. SKIN INTEGRITY ASSESSMENT: Skin integrity risk assessment completed. No skin integrity risk identified. --19:34 Dhaval Lay R.N. PROBLEMS: Diarrhea. Lifestyle / Substance Problems. Gastroesophageal Reflux. Suicidal Ideation. Atypical Chest Pain. Chest Pain of GI Origin. Mental Illness. Anxiety Reaction. Palpitations. Chest Pain. Dizziness. Depression. Obsessive Compulsive Disorder. ADHD - Attention Deficit Hyperactivity Disorder. Back Pain. --19:31 Dhaval Lay R.N. ADDITIONAL SURGERIES: Appendectomy. Septoplasty. Tendon lengthening in rt leg. --19:31 Dhaval Lay R.N. Interventions ID band on patient. To treatment room. --19:34 Dhaval Lay R.N. PHYSICAL ASSESSMENT Ambulatory to room. GENERAL / NEURO / PSYCH: Alert. Oriented X 4. Appears anxious. Does not appear in pain. HEENT: Mucous membranes are pink. RESPIRATORY: Respirations not labored. Breath sounds within normal limits. CVS: No abnormal heart sounds. Capillary refill less than 2 seconds. SKIN: Skin is warm and dry. --19:34 Dhaval Lay R.N. ( Patient ambulated to restroom without assistance.). --19:48 Dhaval Lay R.N. NURSING PROGRESS NOTES Patient gowned. Head of bed elevated. Reassurance given. Call light placed in reach. Side rails up x 1. Bed placed in lowest position. Brakes of bed on. Patient ready for evaluation- chart flagged. Patient waiting for evaluation. ( PA present with patient). --19:35 Dhaval Lay R.N. 19:43 11/27/2016 Started bag #1 1000 mL IV Fluids IV NS (Saline); at 1000 mL/hr over 1 hour(s) via site #1. Allergies verified and confirmed 5 rights. IV patency established. IV site checked: no pain, redness, or swelling. IV flushed thoroughly pre- and post-medication administration. Completed per protocol. --19:44 Dhaval Lay R.N. 19:44 11/27/2016 Site #1 started via IV in the right antecubital space with an 20g angiocath, with aseptic technique and good blood return; one attempt. Blood drawn: rainbow set. Labeled in the presence of the patient and sent to the lab. Saline lock flushed with 10 mL saline. --19:44 Dhaval Lay R.N. 20:19 11/27/2016 Meclizine PO Tablets 50 mg given. Allergies verified, confirmed 5 rights and sedative warning given to the patient. --20:19 Dhaval Lay R.N. ( When asked about his dizziness, patient states "I feel a little wobbly, but not as bad as it was."). --21:17 Dhaval Lay R.N. 21:30 11/27/2016 Valium (Diazepam) IVP 2 mg given over 2 minute(s) via site #1. Allergies verified, confirmed 5 rights and sedative warning given to the patient. IV patency established. IV site checked: no pain, redness, or swelling. IV flushed thoroughly pre- and post-medication administration. IVP given by RN. --21:33 Dhaval Lay R.N. 23:00 11/27/2016 Site #1 removed upon discharge. Manual pressure and bandage applied. --23:16 Dhaval Lay R.N. 23:00 11/27/2016 IV Fluids IV NS Discontinued: completed. Total amount infused: 1000 mL. IV patency established. IV site checked: no pain, redness, or swelling. IV flushed thoroughly. --23:16 Dhaval Lay R.N. DISPOSITION / DISCHARGE Departure time: 2300. Condition at departure: stable. No learning barriers present. Discharge instructions provided and reviewed with the patient. Reviewed warnings. Reviewed medication(s) side effects, precautions, dosing and course information. Prescription(s) given to the patient. Treatments reviewed. Reviewed referrals for followup. Patient verbalized understanding. Written instructions provided in Greek. The patient was discharged home and accompanied by building associate. He left the Emergency Department ambulatory and via private vehicle. Professional Driver driving. ( pt states that he is waiting in the waiting room for his ride to arrive, and that his is driving him home). --23:15 Dhaval Lay R.N. 23:00 11/27/16. BP: 134/82. HR: 100. RR: 20 (regular and unlabored). O2 saturation: 97% on room air. Pain level now: 610. --23:15 Dhaval Lay R.N. <<STRICKEN ENTRY-- 23:13 11/27/16. BP: 134/82. HR: 100. RR: 20 (regular and unlabored). O2 saturation: 97% on room air. Pain level now: 01/04. --23:15 Dhaval Lay R.N. --END STRIKE>> Correction. --23:15 Dhaval Lay R.N. Locked/Released at 11/27/2016 23:16 by Dhaval Lay R.N.
--- NOTE | 2016-11-27 21:46 | ED CLINICAL REPORT ---
Clinical Report - Physicians/Mid Levels [facility] [address] [place] [address] 11/27/2016 19:21 Patient: ALEXY MCKINNEY Time Seen: 19:39 Nov 27 2016. Arrived- By private vehicle. Historian- patient. HISTORY OF PRESENT ILLNESS Chief Complaint: diziness. This started 7 days and is still present. No loss of appetite, weight loss, fatigue, muscle aches or weakness. Denies sleep problem. (The patient reports in the last 7 days has had at times coming up with words to use, and this spontaneously resolves and he is improved, he has had dizziness, sensation of room spinning around him even with eyes closed, some history of dizziness, previously different than this. No new medications.). REVIEW OF SYSTEMS No sore throat, sinus drainage, diarrhea or black stools. He has had a headache (off/ on). All systems otherwise negative, except as recorded above. PAST HISTORY Denies h/o stroke/ mi Denies fam hx stroke/ mi. Problems: Diarrhea. Lifestyle / Substance Problems. Gastroesophageal Reflux. Suicidal Ideation. Atypical Chest Pain. Chest Pain of GI Origin. Mental Illness. Anxiety Reaction. Palpitations. Chest Pain. Dizziness. Abdominal Pain. Abd pain discomfort . Depression. Obsessive Compulsive Disorder. ADHD - Attention Deficit Hyperactivity Disorder. Back Pain. Additional Surgeries: Appendectomy. Septoplasty. Tendon lengthening in rt leg. Medications: Atenolol Oral. Cymbalta Oral. Gabapentin Oral. Paxil Oral. Vicodin Oral. Allergies: None. SOCIAL HISTORY Never smoker. No alcohol use or drug use. ADDITIONAL NOTES The nursing notes have been reviewed. PHYSICAL EXAM Vital Signs: 11/27/2016 19:27 BP: 156/93. HR: 110. RR: 24. O2 saturation: 96%. Temp: 97.7 F. Pain level now: 0/10. Appearance: Alert. Eyes: Eyes normal inspection. ENT: Ears normal. Nose normal. No nasal discharge or pharyngeal erythema. Neck: Normal inspection. CVS: Normal heart rate and rhythm. Heart sounds normal. Rhythm normal. PMI not displaced laterally. Respiratory: No respiratory distress. Breath sounds normal. Abdomen: No visible injury. Soft. Back: Normal inspection. Skin: Normal skin color. Neuro: Oriented X 3. No motor deficit. No sensory deficit. LABS, X-RAYS, AND EKG CT Head: (IMPRESSION: 1. Negative non-enhanced head CT. 2. Findings discussed with Antonia Albright, PAC at 08:05 p.m., [place] Standard Time Electronically Final signed by:Robe Ray MD 11/27/2016 8:06:40 PM). Laboratory Tests: CBC w Diff: (DALLIN: 11/27/2016 19:45) ( MsgRcvd 11/27/2016 19:57) Final results Test Result Flag Units (Reference) WHITE BLOOD COUNT 7.9 K/uL (4.5-11.5) RED BLOOD COUNT 4.64 M/uL (4.50-5.90) HEMOGLOBIN 14.6 gm/dL (13.5-17.5) HEMATOCRIT 43.0 % (41.0-53.0) MEAN CELL VOLUME 93 fL (80-100) MEAN CORPUSCULAR HGB 32 pg (26-34) MEAN CORPUSCULAR HGB CONC 34 g/dL (31-37) RED CELL DISTRIBUTION WIDTH 13.3 % (11.6-14.8) PLATELET COUNT 194 K/uL (150-400) NEUTROPHIL % 38.0 L % (50-75) LYMPH % 41.6 H % (25-40) MONO % 14.4 H % (3-14) EOSINOPHIL % 5.6 H % (0-4) BASOPHIL % 0.4 % (0-2) CMP: (DALLIN: 11/27/2016 19:45) ( MsgRcvd 11/27/2016 20:17) Final results Test Result Flag Units (Reference) GLUCOSE 100 mg/dL (70-110) BUN 9 mg/dL (7-18) CREATININE 1.1 mg/dL (0.6-1.3) Estimated GFR >60 mL/min Estimated GFR- >60 mL/min Note: Persistent reduction over 3 months in eGFR<60 mL/min/1.73 m2 defines CKD. Patients with eGFR values>=60 mL/min/1.73 m2 may also have CKD if evidence ofpersistent proteinuria. Additional information may be foundat www.kidney.org. SODIUM 144 mmol/L (136-145) POTASSIUM 4.2 mmol/L (3.5-5.1) CHLORIDE 104 mmol/L (98-107) CARBON DIOXIDE 32 mmol/L (21-32) CALCIUM 9.2 mg/dL (8.5-10.1) TOTAL PROTEIN 7.5 g/dL (6.4-8.2) ALBUMIN 4.1 g/dL (3.3-5.0) BILIRUBIN, TOTAL 0.3 mg/dL (0.0-1.0) ALKALINE PHOSPHATASE 63 U/L (46-116) AST (SGOT) 44 H U/L (15-37) ALT (SGPT) 38 U/L (12-78) . PROGRESS AND PROCEDURES Course of Care: Patient with dizziness, which improves with laying down, given meclizine and Valium here as well as IV hydration with improvement of symptoms. patient with no headache. This has been ongoing for 7 days, negative neuro exam. Patient to follow up outpatient. No acute signs of stroke or TIA, his symptoms are off and on over the last 7 days. 11/27/2016 21:16 BP: 125/66. HR: 103. O2 saturation: 98%. 11/27/2016 21:11 BP: 132/75. HR: 95. O2 saturation: 99%. 11/27/2016 21:08 BP: 129/80. HR: 97. O2 saturation: 99%. Patient is stable. Patient/family counseled. Disposition: Discharged. CLINICAL IMPRESSION Acute vertigo. INSTRUCTIONS Do not work for two days. Warnings: Further evaluation is necessary. Prescription Medications: Meclizine 25 mg: take 1 tablet orally every 8 hours for 3 days, as needed for dizziness. Dispense ten (10). No refill. Follow-up: Follow up with your doctor tomorrow. (Electronically signed by Shaista Albright P.A.-C 11/27/2016 22:32)
--- NOTE | 2016-11-27 21:46 | ED NURSING NOTES ---
Clinical Report - Nurses [facility] [address] [place] [address] 11/27/2016 19:21 Patient: ALEXY MCKINNEY TRIAGE Triage time 19:27. Acuity: LEVEL 3. Chief Complaint: ("forgetting words"). Alert. LILYL COMA SCORE: Lilly Coma Scale: 15- eyes open spontaneously (4); best verbal response- oriented x 4 (5); best motor response- obeys commands (6). --19:34 Dhaval Lay R.N. 19:27 11/27/16. BP: 156/93 taken while sitting. HR: 110. RR: 24. O2 saturation: 96% on room air. Temp: 97.7 F (oral). Pain level now: 0/10. --19:34 Dhaval Lay R.N. Weight: 117.9 kg stated. Height/Length: 68 inches Per Patient. BMI: 39.5. --19:27 Dhaval Lay R.N. Medications Atenolol Oral. Cymbalta Oral. Gabapentin Oral. Paxil Oral. Vicodin Oral. --19:30 Dhaval Lay R.N. Allergies None. --19:30 Dhaval Lay R.N. History Arrived by private vehicle. Historian: patient. Unaccompanied. Onset. (2 weeks ago). ( intermittent for 2 weeks). SOCIAL HX: Never smoker. No alcohol use or drug use. ( Denies SI/HI). SELF HARM ASSESSMENT: A self harm assessment was performed. The patient answered "no" to the question "Do you have thoughts of harming or killing yourself?" and "Are you here because you tried to hurt yourself?". FALL RISK ASSESSMENT: Fall risk assessment completed. No fall risk identified. NUTRITIONAL RISK ASSESSMENT: The nutritional risk assessment revealed no deficiencies. FUNCTIONAL ASSESSMENT: Functional assessment: no impairments noted. LEARNING NEEDS ASSESSMENT: The learning needs assessment revealed no barriers. SKIN INTEGRITY ASSESSMENT: Skin integrity risk assessment completed. No skin integrity risk identified. --19:34 Dhaval Lay R.N. PROBLEMS: Diarrhea. Lifestyle / Substance Problems. Gastroesophageal Reflux. Suicidal Ideation. Atypical Chest Pain. Chest Pain of GI Origin. Mental Illness. Anxiety Reaction. Palpitations. Chest Pain. Dizziness. Depression. Obsessive Compulsive Disorder. ADHD - Attention Deficit Hyperactivity Disorder. Back Pain. --19:31 Dhaval Lay R.N. ADDITIONAL SURGERIES: Appendectomy. Septoplasty. Tendon lengthening in rt leg. --19:31 Dhaval Lay R.N. Interventions ID band on patient. To treatment room. --19:34 Dhaval Lay R.N. PHYSICAL ASSESSMENT Ambulatory to room. GENERAL / NEURO / PSYCH: Alert. Oriented X 4. Appears anxious. Does not appear in pain. HEENT: Mucous membranes are pink. RESPIRATORY: Respirations not labored. Breath sounds within normal limits. CVS: No abnormal heart sounds. Capillary refill less than 2 seconds. SKIN: Skin is warm and dry. --19:34 Dhaval Lay R.N. ( Patient ambulated to restroom without assistance.). --19:48 Dhaval Lay R.N. NURSING PROGRESS NOTES Patient gowned. Head of bed elevated. Reassurance given. Call light placed in reach. Side rails up x 1. Bed placed in lowest position. Brakes of bed on. Patient ready for evaluation- chart flagged. Patient waiting for evaluation. ( PA present with patient). --19:35 Dhaval Lay R.N. 19:43 11/27/2016 Started bag #1 1000 mL IV Fluids IV NS (Saline); at 1000 mL/hr over 1 hour(s) via site #1. Allergies verified and confirmed 5 rights. IV patency established. IV site checked: no pain, redness, or swelling. IV flushed thoroughly pre- and post-medication administration. Completed per protocol. --19:44 Dhaval Lay R.N. 19:44 11/27/2016 Site #1 started via IV in the right antecubital space with an 20g angiocath, with aseptic technique and good blood return; one attempt. Blood drawn: rainbow set. Labeled in the presence of the patient and sent to the lab. Saline lock flushed with 10 mL saline. --19:44 Dhaval Lay R.N. 20:19 11/27/2016 Meclizine PO Tablets 50 mg given. Allergies verified, confirmed 5 rights and sedative warning given to the patient. --20:19 Dhaval Lay R.N. ( When asked about his dizziness, patient states "I feel a little wobbly, but not as bad as it was."). --21:17 Dhaval Lay R.N. 21:30 11/27/2016 Valium (Diazepam) IVP 2 mg given over 2 minute(s) via site #1. Allergies verified, confirmed 5 rights and sedative warning given to the patient. IV patency established. IV site checked: no pain, redness, or swelling. IV flushed thoroughly pre- and post-medication administration. IVP given by RN. --21:33 Dhaval Lay R.N. 23:00 11/27/2016 Site #1 removed upon discharge. Manual pressure and bandage applied. --23:16 Dhaval Lay R.N. 23:00 11/27/2016 IV Fluids IV NS Discontinued: completed. Total amount infused: 1000 mL. IV patency established. IV site checked: no pain, redness, or swelling. IV flushed thoroughly. --23:16 Dhaval Lay R.N. DISPOSITION / DISCHARGE Departure time: 2300. Condition at departure: stable. No learning barriers present. Discharge instructions provided and reviewed with the patient. Reviewed warnings. Reviewed medication(s) side effects, precautions, dosing and course information. Prescription(s) given to the patient. Treatments reviewed. Reviewed referrals for followup. Patient verbalized understanding. Written instructions provided in Bengali. The patient was discharged home and accompanied by training director. He left the Emergency Department ambulatory and via private vehicle. [employer] Consultant driving. ( pt states that he is waiting in the waiting room for his ride to arrive, and that his is driving him home). --23:15 Dhaval Lay R.N. 23:00 11/27/16. BP: 134/82. HR: 100. RR: 20 (regular and unlabored). O2 saturation: 97% on room air. Pain level now: 610. --23:15 Dhaval Lay R.N. <<STRICKEN ENTRY-- 23:13 11/27/16. BP: 134/82. HR: 100. RR: 20 (regular and unlabored). O2 saturation: 97% on room air. Pain level now: 01/04. --23:15 Dhaval Lay R.N. --END STRIKE>> Correction. --23:15 Dhaval Lay R.N. Locked/Released at 11/27/2016 23:16 by Dhaval Lay R.N.
--- NOTE | 2016-11-27 21:46 | ED ORDER SUMMARY ---
..... Patient: ALEXY MCKINNEY OrderSheet [facility] VisitID: [id number] [place] [address] 31y, M Registration Date/Time: 11/27/2016 ORDER SHEET Weight: 117.9 kg (stated) Allergies: None GENERAL ORDERS: CT Head wo Cont Urgent (19:34 11/27/2016 EKoroleva P.A.-C) (Ack 19:36 CHagerty ER Assistant Administrator) (20:02 MCampbell) CBC w Diff Urgent (19:34 11/27/2016 EKoroleva P.A.-C) (Ack 19:36 CHagerty ER Assistant Administrator) (19:43 DDavis R.N.) CMP Urgent (19:34 11/27/2016 EKoroleva P.A.-C) (Ack 19:36 CHagerty ER Assistant Administrator) (19:43 DDavis R.N.) Vitals - Orthostatic (20:56 11/27/2016 EKoroleva P.A.-C) (21:14 DDavis R.N.) MEDICATION ORDERS: Meclizine PO 25 mg (NOW) (20:11 11/27/2016 EKoroleva P.A.-C) (20:19 DDavis R.N.) IV FLUIDS: IV NS : initial bolus 1000 mL (1000 mL/hr), then 1000 mL/hr for X1 (NOW); [place] (19:34 11/27/2016 EKoroleva P.A.-C) (19:44 DDavis R.N.) Valium IV 2 mg (HIGH ALERT MEDICATION, NOW) (21:11 11/27/2016 EKoroleva P.A.-C) (21:33 DDavis R.N.) ORDER SHEET NOTES: [Electronically signed by Shaista AlbrightABobby-C (22:32 11/27/2016)] [Electronically signed by Dhaval Lay R.N. (23:16 11/27/2016)] [Electronically locked/signed by Dhaval Lay R.N. (23:16 11/27/2016)]
--- NOTE | 2016-11-27 23:17 | ED DISCHARGE INSTRUCTIONS ---
Patient: ALEXY MCKINNEY General Instructions [facility] VisitID: [id number] [place] [address] 31y, M Registration Date/Time: 11/27/2016 Acute vertigo. INSTRUCTIONS Do not work for two days. Warnings: Further evaluation is necessary. Prescription Medications: Meclizine 25 mg: take 1 tablet orally every 8 hours for 3 days, as needed for dizziness. Dispense ten (10). No refill. Follow-up: Follow up with your doctor tomorrow. ADDITIONAL INFORMATION Vertigo [Unknown Cause] The "inner ear" is located behind the middle ear. It is part of the balance center of your body. Disease of the inner ear causes vertigo -- a false feeling of motion. It feels as if you or the room is spinning. A vertigo attack may cause sudden nausea, vomiting and heavy sweating. Severe vertigo causes a loss of balance and can cause you to fall. During vertigo, small head movements and changes in body position will often make the symptoms worse. The causes of vertigo include: Inflammation of the inner ear Disease of the nerves to the inner ear Movement of calcium particles in the inner ear Poor blood flow to the balance centers of the brain An episode of vertigo may last seconds, minutes or hours. Once you are over the first episode, it may never return. However, sometimes symptoms may recur off and on over several weeks or longer, depending on the cause. There may be ringing in the ears or hearing loss, which may be temporary or permanent. Home Care: If symptoms are severe, rest quietly in bed. Change positions very slowly. There is usually one position that will feel best, such as lying on one side or lying on your back with your head slightly raised on pillows. Do not drive or work with dangerous machinery for one week after symptoms go away, in case the symptoms suddenly return. Take medicine as prescribed to relieve your symptoms. Unless another medicine was prescribed for nausea, vomiting and vertigo, you may use enad-cus-xajaqpe motion sickness pills, such as meclizine (Bonine, Bonamine, Antivert) or dimenhydrinate (Dramamine). Follow Up with your doctor or as directed by our staff. Tell the doctor if your ears keep ringing, or if your hearing does not return to normal. Get Prompt Medical Attention if any of the following occur: Vertigo gets worse and is not controlled by medicine prescribed Repeated vomiting not relieved by medicine prescribed Increased weakness or fainting Severe headache or unusually drowsy or confused Weakness of an arm or leg or one side of the face Difficulty with speech or vision You have been given the following additional information: Vertigo, Unspecified Do not work for two days. (Electronically signed by Shaista Albright P.A.-C 11/27/2016 22:32)
--- NOTE | 2016-11-27 23:17 | ED DISCHARGE INSTRUCTIONS ---
Patient: ALEXY MCKINNEY General Instructions [facility] VisitID: [id number] [place] [address] 31y, M Registration Date/Time: 11/27/2016 Acute vertigo. INSTRUCTIONS Do not work for two days. Warnings: Further evaluation is necessary. Prescription Medications: Meclizine 25 mg: take 1 tablet orally every 8 hours for 3 days, as needed for dizziness. Dispense ten (10). No refill. Follow-up: Follow up with your doctor tomorrow. ADDITIONAL INFORMATION Vertigo [Unknown Cause] The "inner ear" is located behind the middle ear. It is part of the balance center of your body. Disease of the inner ear causes vertigo -- a false feeling of motion. It feels as if you or the room is spinning. A vertigo attack may cause sudden nausea, vomiting and heavy sweating. Severe vertigo causes a loss of balance and can cause you to fall. During vertigo, small head movements and changes in body position will often make the symptoms worse. The causes of vertigo include: Inflammation of the inner ear Disease of the nerves to the inner ear Movement of calcium particles in the inner ear Poor blood flow to the balance centers of the brain An episode of vertigo may last seconds, minutes or hours. Once you are over the first episode, it may never return. However, sometimes symptoms may recur off and on over several weeks or longer, depending on the cause. There may be ringing in the ears or hearing loss, which may be temporary or permanent. Home Care: If symptoms are severe, rest quietly in bed. Change positions very slowly. There is usually one position that will feel best, such as lying on one side or lying on your back with your head slightly raised on pillows. Do not drive or work with dangerous machinery for one week after symptoms go away, in case the symptoms suddenly return. Take medicine as prescribed to relieve your symptoms. Unless another medicine was prescribed for nausea, vomiting and vertigo, you may use gdow-pis-eewxdjj motion sickness pills, such as meclizine (Bonine, Bonamine, Antivert) or dimenhydrinate (Dramamine). Follow Up with your doctor or as directed by our staff. Tell the doctor if your ears keep ringing, or if your hearing does not return to normal. Get Prompt Medical Attention if any of the following occur: Vertigo gets worse and is not controlled by medicine prescribed Repeated vomiting not relieved by medicine prescribed Increased weakness or fainting Severe headache or unusually drowsy or confused Weakness of an arm or leg or one side of the face Difficulty with speech or vision You have been given the following additional information: Vertigo, Unspecified Do not work for two days. (Electronically signed by Shaista Albright P.A.-C 11/27/2016 22:32)
--- NOTE | 2016-11-27 23:17 | ED MAR SUMMARY ---
..... Medication Administration Record [facility] [address] [place] [address] Patient: ALEXY MCKINNEY Visit ID: [id number] 31y, M Weight: 117.9 kg Height/Length: 68 in BMI: 39.5 ALLERGIES: None Start 19:43 11/27/2016 Dhaval Lay R.N., Stop 23:00 11/27/2016 Dhaval Lay R.N. Medication Administered: IV NS (SALINE), Dose: IV Fluids over 1 hour(s), Rate: 1000 mL/hr, Dispensed: 1000 mL bag, Site: #1. Medication Ordered: IV NS : initial bolus 1000 mL (1000 mL/hr), then 1000 mL/hr for X1 (NOW); [place]. Given 20:19 11/27/2016 Dhaval Lay R.N. Medication Administered: MECLIZINE [PO], Dose: 50 mg Tablets PO. Medication Ordered: Meclizine PO 25 mg (NOW). Given 21:30 11/27/2016 Dhaval Lay R.N. Medication Administered: VALIUM [IVP] (DIAZEPAM), Dose: 2 mg IVP over 2 minute(s), Site: #1 right AC. Medication Ordered: Valium IV 2 mg (HIGH ALERT MEDICATION, NOW).
--- NOTE | 2016-11-27 23:17 | ED MED RECONCILIATION SUMMARY ---
Patient: ALEXY MCKINNEY Medication Reconciliation Report [facility] VisitID: [id number] [address] [place] [address] 31y, M Registration Date/Time: 11/27/2016 Weight: 117.9 kg Height/Length: 68 in. BMI: 39.5 ALLERGIES: None The patient's Home Medications are listed below: THE FOLLOWING MEDICATIONS NEED TO BE RECONCILED: Atenolol Oral Cymbalta Oral Gabapentin Oral Paxil Oral Vicodin Oral The source(s) of the original Home Medication information: Not obtained. The following Medications were given to the patient in the Emergency Department: IV NS IV Fluids bolus 0, then 1000 mL/hr, administered: 11/27/2016 7:43:00 PM Meclizine [PO] PO 50 mg, administered: 11/27/2016 8:19:00 PM Valium [IVP] IVP 2 mg, administered: 11/27/2016 9:30:00 PM The following Medications were prescribed to the patient: Meclizine 25 mg: take 1 tablet orally every 8 hours for 3 days, as needed for dizziness. Dispense ten (10). No refill. -- Shaista Albright, Sanjay
--- NOTE | 2016-11-27 23:17 | ED MAR SUMMARY ---
..... Medication Administration Record [facility] [address] [place] [address] Patient: ALEXY MCKINNEY Visit ID: [id number] 31y, M Weight: 117.9 kg Height/Length: 68 in BMI: 39.5 ALLERGIES: None Start 19:43 11/27/2016 Dhaval Lay R.N., Stop 23:00 11/27/2016 Dhaval Lay R.N. Medication Administered: IV NS (SALINE), Dose: IV Fluids over 1 hour(s), Rate: 1000 mL/hr, Dispensed: 1000 mL bag, Site: #1. Medication Ordered: IV NS : initial bolus 1000 mL (1000 mL/hr), then 1000 mL/hr for X1 (NOW); [place]. Given 20:19 11/27/2016 Dhaval Lay R.N. Medication Administered: MECLIZINE [PO], Dose: 50 mg Tablets PO. Medication Ordered: Meclizine PO 25 mg (NOW). Given 21:30 11/27/2016 Dhaval Lay R.N. Medication Administered: VALIUM [IVP] (DIAZEPAM), Dose: 2 mg IVP over 2 minute(s), Site: #1 right AC. Medication Ordered: Valium IV 2 mg (HIGH ALERT MEDICATION, NOW).
--- NOTE | 2016-11-27 23:17 | ED MED RECONCILIATION SUMMARY ---
Patient: ALEXY MCKINNEY Medication Reconciliation Report [facility] VisitID: [id number] [address] [place] [address] 31y, M Registration Date/Time: 11/27/2016 Weight: 117.9 kg Height/Length: 68 in. BMI: 39.5 ALLERGIES: None The patient's Home Medications are listed below: THE FOLLOWING MEDICATIONS NEED TO BE RECONCILED: Atenolol Oral Cymbalta Oral Gabapentin Oral Paxil Oral Vicodin Oral The source(s) of the original Home Medication information: Not obtained. The following Medications were given to the patient in the Emergency Department: IV NS IV Fluids bolus 0, then 1000 mL/hr, administered: 11/27/2016 7:43:00 PM Meclizine [PO] PO 50 mg, administered: 11/27/2016 8:19:00 PM Valium [IVP] IVP 2 mg, administered: 11/27/2016 9:30:00 PM The following Medications were prescribed to the patient: Meclizine 25 mg: take 1 tablet orally every 8 hours for 3 days, as needed for dizziness. Dispense ten (10). No refill. -- Shaista Albright, Sanjay
== END 2016-11-27 23:00 | disposition home or self-care (01) ==
LOC: ED SRH 19:20
DX: R42 Dizziness and giddiness (principal); K21.9 Gastro-esophageal reflux disease without esophagitis; Z79.899 Other long term (current) drug therapy
CPT/HCPCS: 90100; 95059

== ENCOUNTER 2016-12-07 19:01 | Emergency (ER) | payer OTHER ==
--- NOTE | 2016-12-07 19:56 | DIAGNOSTIC IMAGING REPORT ---
PROCEDURE: XR CHEST 2 VIEW INDICATION: CHEST PAIN TECHNIQUE: PA and lateral view. COMPARISON: Chest x-ray 11/17/2016. FINDINGS: Lungs are clear. Cardiovascular structures are normal. Bony thorax is unremarkable. No significant interval change. IMPRESSION: 1. Negative chest.
--- NOTE | 2016-12-07 22:38 | ED ORDER SUMMARY ---
..... Patient: ALEXY MCKINNEY OrderSheet [facility] VisitID: [id number] [address] [place] [address] 31y, M Registration Date/Time: 12/07/2016 ORDER SHEET Weight: 117.9 kg (stated) Allergies: None GENERAL ORDERS: Chest 2V Urgent (19:20 12/07/2016 EKoroleva P.A.-C) (Ack 19:21 CHagerty ER Vice President Of Communications) (19:38 JSanders R.N.) PT with INR Urgent (19:20 12/07/2016 EKoroleva P.A.-C) (19:20 JSanders R.N.) PTT Urgent (19:20 12/07/2016 EKoroleva P.A.-C) (19:20 JSanders R.N.) Cardiac Panel Stat (19:20 12/07/2016 EKoroleva P.A.-C) (19:20 JSanders R.N.) D-Dimer Urgent (19:20 12/07/2016 EKoroleva P.A.-C) (Ack 19:21 CHagerty ER Vice President Of Communications) (19:24 JSanders R.N.) TSH Urgent (19:21 12/07/2016 EKoroleva P.A.-C) (Ack 19:21 CHagerty ER Vice President Of Communications) (19:24 JSanders R.N.) Urine Drug Screen Urgent (19:21 12/07/2016 EKoroleva P.A.-C) (Ack 19:21 CHagerty ER Vice President Of Communications) (19:32 JSanders R.N.) Student Development Specialist (Continuous) (19:24 12/07/2016 EKoroleva P.A.-C) (19:26 JSanders R.N.) Troponin-I (3935 lab draw) Urgent (20:48 12/07/2016 EKoroleva P.A.-C) (Ack 20:51 CHagerty ER Vice President Of Communications) (21:58 CHagerty ER Vice President Of Communications) MEDICATION ORDERS: IV FLUIDS: IV Saline Lock (19:20 12/07/2016 EKoroleva P.A.-C) (19:21 JSanders R.N.) ORDER SHEET NOTES: [Electronically signed by Shaista Albright P.A.-C (23:05 12/07/2016)] [Electronically signed by Aravind Davis R.N. (23:41 12/07/2016)] [Electronically locked/signed by Aravind Davis R.N. (23:41 12/07/2016)]
--- NOTE | 2016-12-07 22:38 | ED CLINICAL REPORT ---
Clinical Report - Physicians/Mid Levels [facility] [address] [place] [address] 12/07/2016 19:02 Patient: ALEXY MCKINNEY [facility] [id number] Time Seen: 19:21 Dec 07 2016. Arrived- By private vehicle. Historian- patient. HISTORY OF PRESENT ILLNESS Chief Complaint: CHEST PAIN and DISCOMFORT. This started today and is still present. It is described as located in the central chest area. No nausea or vomiting. (Reports off and on pain for many months, today about 4 hours [id number] pain related to the left side into the left arm with paresthesias, history of similar, patient recently started on testosterone injections and since she has had pain. Patient has not followed up with cardiology. Previously worked up for similar pains. He denies history of DVT or PE. Denies aneurysm with history of sudden or history of ME. Denies any recent illness. Denies recent prolonged travel. He denies any trauma.). REVIEW OF SYSTEMS No chills, cough, abnormal bleeding, vaginal discharge or fainting episodes. No headache. All systems otherwise negative, except as recorded above. PAST HISTORY Problems: Hypertension. Vertigo. Diarrhea. Lifestyle / Substance Problems. Gastroesophageal Reflux. Suicidal Ideation. Atypical Chest Pain. Chest Pain of GI Origin. Mental Illness. Anxiety Reaction. Palpitations. Chest Pain. Dizziness. Abdominal Pain. Abd pain discomfort . Depression. Obsessive Compulsive Disorder. ADHD - Attention Deficit Hyperactivity Disorder. Back Pain. Additional Surgeries: Appendectomy. Septoplasty. Tendon lengthening in rt leg. Medications: Atenolol Oral. Cymbalta Oral. Gabapentin Oral. Paxil Oral. Vicodin Oral. Allergies: None. SOCIAL HISTORY Former smoker. Alcohol use. No drug use. ADDITIONAL NOTES The nursing notes have been reviewed. PHYSICAL EXAM Vital Signs: 12/07/2016 19:11 BP: 136/68. HR: 102. RR: 18. O2 saturation: 99%. Temp: 98.8 F. Pain level now: 4/10. Appearance: Alert. Eyes: Eyes normal inspection. ENT: Nose normal. Pharynx normal. Neck: Normal inspection. CVS: Normal heart rate and rhythm. Heart sounds normal. Respiratory: No respiratory distress. Breath sounds normal. No accessory muscle use or chest pain reproduced on physical exam. Neuro: Oriented X 3. No motor deficit. LABS, X-RAYS, AND EKG EKG: EKG time: (1913). No acute process. No acute ischemia. Rate: 100. Normal P waves. Normal EM. Normal QRS complex. Normal axis. Normal ST and T waves and QT. The study has been interpreted contemporaneously. The study has been independently viewed by me. The EKG appears to be a good tracing. Chest X-ray: (IMPRESSION: 1. Negative chest. Electronically Final signed by:Robe Ray MD 12/07/2016 7:55:50 PM). Laboratory Tests: CBC w Diff: (DALLIN: 12/07/2016 19:10) ( MsgRcvd 12/07/2016 19:50) Final results Test Result Flag Units (Reference) WHITE BLOOD COUNT 12.6 H K/uL (4.5-11.5) RED BLOOD COUNT 4.84 M/uL (4.50-5.90) HEMOGLOBIN 15.1 gm/dL (13.5-17.5) HEMATOCRIT 45.2 % (41.0-53.0) MEAN CELL VOLUME 94 fL (80-100) MEAN CORPUSCULAR HGB 31 pg (26-34) MEAN CORPUSCULAR HGB CONC 34 g/dL (31-37) RED CELL DISTRIBUTION WIDTH 13.2 % (11.6-14.8) PLATELET COUNT 208 K/uL (150-400) NEUTROPHIL % 59.7 % (50-75) LYMPH % 26.0 % (25-40) MONO % 10.6 % (3-14) EOSINOPHIL % 3.2 % (0-4) BASOPHIL % 0.5 % (0-2) PT with INR: (DALLIN: 12/07/2016 19:10) ( MsgRcvd 12/07/2016 19:52) Final results Test Result Flag Units (Reference) INR 0.9 (0.8-1.2) Low Intensity Therapy: INR 1.5-2.0 PT range 18.5-23.1Mod.Intensity Therapy: INR 2.0-3.0 PT range 23.1-31.5High Intensity Therapy: INR 2.5-3.5 PT range 27.4-35.5High Intensity Therapy 2: INR 3.0-4.0 PT range 31.5-39.3 APTT 25 SECONDS (24-34) D-DIMER QUANTITATIVE < 0.27 L ug/mLFEU (0.27-0.52) The primary value of this quantitative assay relates toits negative predictive value (i.e. exclusion) of pulmonaryembolism/deep vein thrombosis/DIC.Elevated levels of d-dimer may also occur with:, age, cancer, inflammation, liver disease,post-op, infection, hematoma, coronary disease, peripheralarteriopathy, bleeding disorders and thrombolytic treatment.Results should be correlated with other clinical andradiological data.Testing Methodology: Latex Immunoassay Troponin-I: (DALLIN: 12/07/2016 21:55) ( [facility] 12/07/2016 22:32) Final results Test Result Flag Units (Reference) TROPONIN I <0.05 L ng/mL (0.00-1.5) TROPONIN REFERENCE RANGE:<0.1 NEGATIVE0.1-1.5 INDETERMINANT>1.5 POSITIVE Urine Drug Screen: (DALLIN: 12/07/2016 20:00) ( [facility] 12/07/2016 20:21) Final results Test Result Flag Units (Reference) AMPHETAMINE/METHAMPHETAMINE NEGATIVE (NEGATIVE) BARBITURATE NEGATIVE (NEGATIVE) BENZODIAZEPINE NEGATIVE (NEGATIVE) CANNABINOID NEGATIVE (NEGATIVE) COCAINE NEGATIVE (NEGATIVE) ECSTASY NEGATIVE (NEGATIVE) METHADONE NEGATIVE (NEGATIVE) OPIATE NEGATIVE (NEGATIVE) The urine drug screen is a qualitative screening test fordrug overdose and abuse. All screen results should beconsidered as presumptive.Drugs screened for are as follows:BenzodiazepinesCocaineAmphetamines/MetamphetaminesTHC (Tetrahydrocannabinol)OpiatesBarbituratesEcstasyMethadonePositive results are unconfirmed. For confirmation, notifythe lab for the specimen to be sent to the reference lab.All confirmations must be performed by a differentmethodology.The ingestion of natural herbal and plant productscontaining Ephedra/Ephedra metabolites can produce in urineone or more substances capable of cross reacting withamphetamine/methamphetamine immunoassays. These testsprovide a preliminary result only. A more specificalternative chemical method must be used to obtain aconfirmed analytical result. CHEM 13 PANEL: (DALLIN: 12/07/2016 19:10) ( MsgRcvd 12/07/2016 20:00) Final results Test Result Flag Units (Reference) GLUCOSE 97 mg/dL (70-110) BUN 8 mg/dL (7-18) CREATININE 0.9 mg/dL (0.6-1.3) Estimated GFR >60 mL/min Estimated GFR- >60 mL/min Note: Persistent reduction over 3 months in eGFR<60 mL/min/1.73 m2 defines CKD. Patients with eGFR values>=60 mL/min/1.73 m2 may also have CKD if evidence ofpersistent proteinuria. Additional information may be foundat www.kidney.org. SODIUM 146 H mmol/L (136-145) POTASSIUM 3.9 mmol/L (3.5-5.1) CHLORIDE 107 mmol/L (98-107) CARBON DIOXIDE 31 mmol/L (21-32) CALCIUM 8.9 mg/dL (8.5-10.1) TOTAL PROTEIN 7.7 g/dL (6.4-8.2) ALBUMIN 4.1 g/dL (3.3-5.0) BILIRUBIN, TOTAL 0.5 mg/dL (0.0-1.0) ALKALINE PHOSPHATASE 59 U/L (46-116) AST (SGOT) 27 U/L (15-37) ALT (SGPT) 34 U/L (12-78) MAGNESIUM 1.5 L mg/dL (1.8-2.4) CPK 255 U/L (24-260) TROPONIN I <0.05 L ng/mL (0.00-1.5) TROPONIN REFERENCE RANGE:<0.1 NEGATIVE0.1-1.5 INDETERMINANT>1.5 POSITIVE THYROID STIMULATING HORMONE 1.321 uIU/mL (0.34-3.74) . PROGRESS AND PROCEDURES Course of Care: Patient in the ER with chest pain ongoing for a few hours prior to arrival. History of similar over the last few months. Patient was no recent illness. Pain was right-sided strain to the left, now subsided. Patient very stable. She encouraged follow-up with his primary care provider as well as hisfurther need for [facility]. 12/07/2016 22:24 BP: 128/76. HR: 92. RR: 18. O2 saturation: 96%. Pain level now: 0. 12/07/2016 21:14 BP: 111/61. HR: 96. RR: 18. O2 saturation: 95%. Pain level now: 0. 12/07/2016 20:43 BP: 120/59. HR: 100. RR: 18. O2 saturation: 99%. Pain level now: 09/06. Patient is stable. Symptoms better. Patient/family counseled. Differential Diagnosis: I considered muscle strain, costochondritis, pleurisy, epidemic pleurodynia, intercostal neuritis, myocardial infarction, intermediate coronary syndrome, aortic dissection, pulmonary embolism, pneumonia, gastroesophageal reflux disease and esophagitis as a possible cause of chest pain in this patient. This is a partial list of diagnoses considered. Disposition: Discharged. Condition: good. CLINICAL IMPRESSION Atypical chest pain .12 lead EKG performed. INSTRUCTIONS Avoid stimulants (such as cigarettes, coffee, cold medicines, sinus medicines, street drugs). OTC Medications: Take OTC medications according to label instructions. Available over the counter. Acetaminophen (available over the counter): take according to label instructions. Follow-up: Follow up with your doctor in three days. Understanding of the discharge instructions verbalized by patient. (Electronically signed by Shaista Albright P.A.-C 12/07/2016 23:05)
--- NOTE | 2016-12-07 22:38 | ED ORDER SUMMARY ---
..... Patient: ALEXY MCKINNEY OrderSheet [facility] VisitID: [id number] [address] [place] [address] 31y, M Registration Date/Time: 12/07/2016 ORDER SHEET Weight: 117.9 kg (stated) Allergies: None GENERAL ORDERS: Chest 2V Urgent (19:20 12/07/2016 EKoroleva P.A.-C) (Ack 19:21 CHagerty ER Small Craft Operator) (19:38 JSanders R.N.) PT with INR Urgent (19:20 12/07/2016 EKoroleva P.A.-C) (19:20 JSanders R.N.) PTT Urgent (19:20 12/07/2016 EKoroleva P.A.-C) (19:20 JSanders R.N.) Cardiac Panel Stat (19:20 12/07/2016 EKoroleva P.A.-C) (19:20 JSanders R.N.) D-Dimer Urgent (19:20 12/07/2016 EKoroleva P.A.-C) (Ack 19:21 CHagerty ER Small Craft Operator) (19:24 JSanders R.N.) TSH Urgent (19:21 12/07/2016 EKoroleva P.A.-C) (Ack 19:21 CHagerty ER Small Craft Operator) (19:24 JSanders R.N.) Urine Drug Screen Urgent (19:21 12/07/2016 EKoroleva P.A.-C) (Ack 19:21 CHagerty ER Small Craft Operator) (19:32 JSanders R.N.) Radio Interference Investigator (Continuous) (19:24 12/07/2016 EKoroleva P.A.-C) (19:26 JSanders R.N.) Troponin-I (8705 lab draw) Urgent (20:48 12/07/2016 EKoroleva P.A.-C) (Ack 20:51 CHagerty ER Small Craft Operator) (21:58 CHagerty ER Small Craft Operator) MEDICATION ORDERS: IV FLUIDS: IV Saline Lock (19:20 12/07/2016 EKoroleva P.A.-C) (19:21 JSanders R.N.) ORDER SHEET NOTES: [Electronically signed by Shaista Albright P.A.-C (23:05 12/07/2016)] [Electronically signed by Aravind Davis R.N. (23:41 12/07/2016)] [Electronically locked/signed by Aravind Davis R.N. (23:41 12/07/2016)]
--- NOTE | 2016-12-07 22:38 | ED NURSING NOTES ---
Clinical Report - Nurses [facility] [address] [place] [address] 12/07/2016 19:02 Patient: ALEXY MCKINNEY TRIAGE Triage time 19:Dec 07 2016. Acuity: LEVEL 3. Chief Complaint: CHEST PAIN. 19:13 12/07/16. SEPSIS SCREEN: Sepsis Screen. Negative (no infection suspected/documented). ZACH COMA SCORE: [place] Coma Scale: 15- eyes open spontaneously (4); best verbal response- oriented x 4 (5); best motor response- obeys commands (6). --19:14 Charissa Lujan R.N. 19:11 12/07/16. BP: 136/68. HR: 102. RR: 18. O2 saturation: 99% on room air. Temp: 98.8 F (oral). Pain level now: 11/04. --19:14 Charissa Lujan R.N. 19:23 12/07/16. --19:23 Charissa Lujan R.N. Weight: 117.9 kg stated. Height/Length: 68 inches Per Patient. BMI: 39.5. --19:14 Charissa Lujan R.N. Medications Atenolol Oral (Tablet 25 mg) 1/2 tablet. Cymbalta Oral (Capsule Delayed Release Particles 60 mg) 1 capsule. Gabapentin Oral (Capsule 300 mg) 1 capsule, daily. Paxil Oral (Tablet 20 mg) 1 tablet, daily as needed. Vicodin Oral. --19:11 Charissa Lujan R.N. Testosterone Cypionate Intramuscular (Solution 100 mg/mL). --19:22 Charissa Lujan R.N. The following entry was struck and corrected by Charissa Lujan R.N., 19:22 (12/07/16) Reason for correction - other(correction). <<STRICKEN ENTRY-- Paxil Oral. --19:11 Charissa Lujan R.N. --END STRIKE>> The following entry was struck and corrected by Charissa Lujan R.N., 19:22 (12/07/16) Reason for correction - other(correction). <<STRICKEN ENTRY-- Gabapentin Oral. --19:11 Charissa Lujan R.N. --END STRIKE>> The following entry was struck and corrected by Charissa Lujan R.N., 19:22 (12/07/16) Reason for correction - other(correction). <<STRICKEN ENTRY-- Cymbalta Oral. --19:11 Charissa Lujan R.N. --END STRIKE>> The following entry was struck and corrected by Charissa Lujan R.N., 19:22 (12/07/16) Reason for correction - other(correction). <<STRICKEN ENTRY-- Atenolol Oral. --19:11 Charissa Lujan R.N. --END STRIKE>>. Allergies None. --19:11 Charissa Lujan R.N. History Arrived by private vehicle. Historian: patient. Accompanied by family. This started today. ( Pain started in right side and radiated to left side. Started when she started testosterone again in May has been having symptoms since). He has had difficulty breathing and nausea. 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 PAST MEDICAL HX: Hypertension. SOCIAL HX: Current every day smoker. Occasional alcohol use; consumes beer. No drug use. No infectious disease exposure. ABUSE ASSESSMENT: No report of abuse. --19:14 Charissa Lujan R.N. SOCIAL HX: Smoker- current status unknown. Occasional alcohol use; consumes beer. No drug use. No infectious disease exposure. ABUSE ASSESSMENT: No report of abuse. --19:23 Charissa Lujan R.N. PROBLEMS: Vertigo. Diarrhea. Gastroesophageal Reflux. Atypical Chest Pain. Chest Pain of GI Origin. Mental Illness. Anxiety Reaction. Palpitations. Chest Pain. Abdominal Pain. Abd pain discomfort . Depression. Obsessive Compulsive Disorder. ADHD - Attention Deficit Hyperactivity Disorder. Back Pain. --19:12 Charissa Lujan R.N. ADDITIONAL SURGERIES: Appendectomy. Septoplasty. Tendon lengthening in rt leg. --19:12 Lujan, Charissa, R.N. Interventions ID band on patient. To treatment room. --19:14 Charissa Lujan R.N. PHYSICAL ASSESSMENT 19:15 12/07/16. Ambulatory to room. Patient gowned. GENERAL / NEURO / PSYCH: Alert. Oriented X 4. Appears anxious. HEENT: Mucous membranes are pink. RESPIRATORY: Respirations not labored. Chest nontender. Mid- sternal tenderness. Breath sounds within normal limits. CVS: Normal sinus rhythm noted. Heart sounds within normal limits. Pulses within normal limits. Capillary refill less than 2 seconds. GI / : Abdomen soft and nontender. EXTREMITIES: No lower extremity edema. SKIN: Skin is warm. Normal skin turgor. Skin is non-tender. --19:15 Charissa Lujan R.N. NURSING PROGRESS NOTES 19:12 12/07/2016 Site #1 started via IV in the right antecubital space with an 20g angiocath, with aseptic technique and good blood return; one attempt. Blood drawn: rainbow set. Labeled in the presence of the patient and sent to the lab. Saline lock flushed with 10 mL saline. --19:18 Charissa Lujan R.N. 19:15 12/07/16. The plan of care for this patient has been created. Monitoring of patient in place. EKG time: (19:Dec 07 2016). EKG was performed by a bailey and shown to the ED physician. Patient gowned. Head of bed elevated. Reassurance given. Two patient identifiers checked. Call light placed in reach. Side rails up x 1. Bed placed in lowest position. Brakes of bed on. Patient ready for evaluation- chart flagged and ED physician notified. --19:15 Charissa Lujan R.N. Cardiac rhythm: sinus tachycardia. --19:32 Charissa Lujan R.N. 19:34 12/07/16. ( offered warm blanket, accepted). --19:34 Charissa Lujan R.N. 19:33 12/07/16. BP: 136/68 (regular adult cuff) taken on the left arm. HR: 102 (tachycardic). RR: 18. O2 saturation: 99% on room air. Pain level now: 11/04. --19:34 Lujan, Charissa, R.N. Patient transported to radiology by stretcher with tech. (19:34 Dec 07 2016). --19:34 Charissa Lujan R.N. Patient returned from radiology by stretcher with tech. (19:37 Dec 07 2016). --19:37 Charissa Lujan R.N. 19:53 12/07/16. --19:53 Charissa Lujan R.N. 19:52 12/07/16. BP: 121/56 (regular adult cuff) taken on the left arm. HR: 104 (tachycardic). RR: 18. O2 saturation: 99% on room air. Pain level now: 11/04. --19:53 Charissa Lujan R.N. 20:13 12/07/16. ( Patient up to use restroom). --20:13 Charissa Lujan R.N. 20:13 12/07/16. BP: 108/63 (regular adult cuff) taken on the left arm. HR: 99. RR: 18. O2 saturation: 99% on room air. Pain level now: 11/04. --20:14 Charissa Lujan R.N. ( Patient back in room, hooked back up to monitors). --20:15 Charissa Lujan R.N. 20:44 12/07/16. ( Patient informed there will be another lab drawn at 2155, explained why. He states his understanding). --20:44 Charissa Lujan R.N. 20:43 12/07/16. BP: 120/59 (regular adult cuff) taken on the left arm. HR: 100. RR: 18 (regular). O2 saturation: 99% on room air. Pain level now: 2/10. Additional comments: chest. --20:44 Charissa Lujan R.N. 21:15 12/07/16. --21:15 Charissa Lujan R.N. 21:14 12/07/16. BP: 111/61 (regular adult cuff) taken on the left arm. HR: 96. RR: 18 (regular). O2 saturation: 95% on room air. Pain level now: 0/10. --21:15 Charissa Lujan R.N. ( Patient request lab report on DC). --21:15 Charissa Lujan R.N. 22:24 12/07/16. ( Patient offered comfort measures, he declined.). --22:24 Charissa Lujan R.N. 22:24 12/07/16. BP: 128/76 (regular adult cuff) taken on the left arm. HR: 92. RR: 18. O2 saturation: 96% on room air. Pain level now: 010. --22:25 Charissa Lujan R.N. 23:02. The patient is calm and resting quietly. Overall patient status is improved- he states feels better. RESPIRATORY: No respiratory distress. SKIN: Skin is warm and dry. Skin color within normal limits. --23:06 Aravind Davis R.N. DISPOSITION / DISCHARGE 23:01 12/07/2016 Site #1 removed upon discharge. Catheter intact. Bandage applied. --23:05 Aravind Davis R.N. Departure time: 23:04. Condition at departure: stable. No learning barriers present. Discharge instructions provided and reviewed with the patient. Patient verbalized understanding. Written instructions provided in Cypriot. The patient was discharged home and accompanied by spouse. He left the Emergency Department ambulatory and via private vehicle. Spouse driving. FALL RISK ASSESSMENT: Fall risk assessment completed. No fall risk identified. --23:06 Aravind Davis R.N. 23:00 12/07/16. BP: 120/72. HR: 98. RR: 15. O2 saturation: 99%. Pain level now: 08/06. --23:06 Aravind Davis R.N. Locked/Released at 12/07/2016 23:41 by Aravind Davis R.N.
--- NOTE | 2016-12-07 23:41 | ED DISCHARGE INSTRUCTIONS ---
Patient: ALEXY MCKINNEY General Instructions [facility] VisitID: [id number] [address] [place] [address] 31y, M Registration Date/Time: 12/07/2016 Atypical chest pain .12 lead EKG performed. INSTRUCTIONS Avoid stimulants (such as cigarettes, coffee, cold medicines, sinus medicines, street drugs). OTC Medications: Take OTC medications according to label instructions. Available over the counter. Acetaminophen (available over the counter): take according to label instructions. Follow-up: Follow up with your doctor in three days. Understanding of the discharge instructions verbalized by patient. ADDITIONAL INFORMATION Chest Pain, Uncertain Cause Chest pain can happen for a number of reasons. Sometimes the cause can not be determined. If yourcondition does not seem serious, and your pain does not appear to be coming from your heart, your doctor may recommend watching it closely. Sometimes the signs of a serious problem take more time to appear. Therefore, watch for the warning signs listed below. Home care After your visit, follow these recommendations: Rest today and avoid strenuous activity. Take any prescribed medicine as directed. Follow-up care Follow up with your doctor or this facility as instructed or if you do not start to feel better within 24 hours. Call 911 Get immediate medical attention if any of the following occur: A change in the type of pain: if it feels different, becomes more severe, lasts longer, or begins to spread into your shoulder, arm, neck, jaw or back Shortness of breath or increased pain with breathing Weakness, dizziness, or fainting Rapid heart beat Get prompt medical attention Call your doctor right away if any of the following occur: Cough with dark colored sputum (phlegm) or blood Fever of 100.4F(38C) or higher, or as directed by your health care provider Swelling, pain or redness in one leg You have been given the following additional information: Chest Pain, Uncertain Cause (Electronically signed by Shaista Albright P.A.-C 12/07/2016 23:05)
--- NOTE | 2016-12-07 23:41 | ED MAR SUMMARY ---
..... Medication Administration Record [facility] [address] [place], [place] [id number] Patient: ALEXY MCKINNEY Visit ID: [id number] 31y, M Weight: 117.9 kg Height/Length: 68 in BMI: 39.5 ALLERGIES: None
--- NOTE | 2016-12-07 23:41 | ED MAR SUMMARY ---
..... Medication Administration Record [facility] [address] [place], [place] [id number] Patient: ALEXY MCKINNEY Visit ID: [id number] 31y, M Weight: 117.9 kg Height/Length: 68 in BMI: 39.5 ALLERGIES: None
--- NOTE | 2016-12-07 23:41 | ED MED RECONCILIATION SUMMARY ---
Patient: ALEXY MCKINNEY Medication Reconciliation Report [facility] VisitID: [id number] [address] [place] [address] 31y, M Registration Date/Time: 12/07/2016 Weight: 117.9 kg Height/Length: 68 in. BMI: 39.5 ALLERGIES: None The patient's Home Medications are listed below: THE FOLLOWING MEDICATIONS NEED TO BE RECONCILED: Atenolol Oral (25 mg) 1/2 tablet Cymbalta Oral (60 mg) 1 capsule Gabapentin Oral (300 mg) 1 capsule, daily Paxil Oral (20 mg) 1 tablet, daily Testosterone Cypionate Intramuscular (100 mg/mL) Vicodin Oral The source(s) of the original Home Medication information: Not obtained. The following Medications were given to the patient in the Emergency Department: None. The following Medications were prescribed to the patient: Take OTC medications according to label instructions. Available over the counter. -- Shaista Albright, P.A.-Tony Acetaminophen (available over the counter): take according to label instructions. -- Shaista Albright, P.A.-C
--- NOTE | 2016-12-07 23:41 | ED DISCHARGE INSTRUCTIONS ---
Patient: ALEXY MCKINNEY General Instructions [facility] VisitID: [id number] [address] [place] [address] 31y, M Registration Date/Time: 12/07/2016 Atypical chest pain .12 lead EKG performed. INSTRUCTIONS Avoid stimulants (such as cigarettes, coffee, cold medicines, sinus medicines, street drugs). OTC Medications: Take OTC medications according to label instructions. Available over the counter. Acetaminophen (available over the counter): take according to label instructions. Follow-up: Follow up with your doctor in three days. Understanding of the discharge instructions verbalized by patient. ADDITIONAL INFORMATION Chest Pain, Uncertain Cause Chest pain can happen for a number of reasons. Sometimes the cause can not be determined. If yourcondition does not seem serious, and your pain does not appear to be coming from your heart, your doctor may recommend watching it closely. Sometimes the signs of a serious problem take more time to appear. Therefore, watch for the warning signs listed below. Home care After your visit, follow these recommendations: Rest today and avoid strenuous activity. Take any prescribed medicine as directed. Follow-up care Follow up with your doctor or this facility as instructed or if you do not start to feel better within 24 hours. Call 911 Get immediate medical attention if any of the following occur: A change in the type of pain: if it feels different, becomes more severe, lasts longer, or begins to spread into your shoulder, arm, neck, jaw or back Shortness of breath or increased pain with breathing Weakness, dizziness, or fainting Rapid heart beat Get prompt medical attention Call your doctor right away if any of the following occur: Cough with dark colored sputum (phlegm) or blood Fever of 100.4F(38C) or higher, or as directed by your health care provider Swelling, pain or redness in one leg You have been given the following additional information: Chest Pain, Uncertain Cause (Electronically signed by Shaista Albright P.A.-C 12/07/2016 23:05)
--- NOTE | 2016-12-07 23:41 | ED MED RECONCILIATION SUMMARY ---
Patient: ALEXY MCKINNEY Medication Reconciliation Report [facility] VisitID: [id number] [address] [place] [address] 31y, M Registration Date/Time: 12/07/2016 Weight: 117.9 kg Height/Length: 68 in. BMI: 39.5 ALLERGIES: None The patient's Home Medications are listed below: THE FOLLOWING MEDICATIONS NEED TO BE RECONCILED: Atenolol Oral (25 mg) 1/2 tablet Cymbalta Oral (60 mg) 1 capsule Gabapentin Oral (300 mg) 1 capsule, daily Paxil Oral (20 mg) 1 tablet, daily Testosterone Cypionate Intramuscular (100 mg/mL) Vicodin Oral The source(s) of the original Home Medication information: Not obtained. The following Medications were given to the patient in the Emergency Department: None. The following Medications were prescribed to the patient: Take OTC medications according to label instructions. Available over the counter. -- Shaista Albright, P.A.-Tony Acetaminophen (available over the counter): take according to label instructions. -- Shaista Albright, P.A.-C
== END 2016-12-07 23:04 | disposition home or self-care (01) ==
LOC: ED SRH 19:01
DX: R07.89 Other chest pain (principal); I10 Essential (primary) hypertension; Z79.891 Long term (current) use of opiate analgesic; Z79.899 Other long term (current) drug therapy; Z87.891 Personal history of nicotine dependence
CPT/HCPCS: 90074; 90100; 90616; 91556; 92610; 92720; 92760; 92761; 92762; 92763; 92764; 92765; 92766; 92767; 93140; 94001; 94060; 95059

== ENCOUNTER 2016-12-13 00:14 | Emergency (ER) | payer OTHER ==
--- NOTE | 2016-12-13 02:28 | DIAGNOSTIC IMAGING REPORT ---
PROCEDURE: XR CHEST 2 VIEW INDICATION: CHEST PAIN TECHNIQUE: PA and lateral views. COMPARISON: Compared to chest x-ray 11/27/2016. FINDINGS: Allowing for overlying wires and electrodes, lungs are clear. Heart and mediastinum are normal. Thorax is normal. IMPRESSION: 1. Negative chest.
--- NOTE | 2016-12-13 03:56 | ED CLINICAL REPORT ---
Clinical Report - Physicians/Mid Levels [facility] [address] [place] [address] 12/13/2016 0:15 Patient: ALEXY MCKINNEY Time Seen: 01:02 Dec 13 2016. Arrived- By private vehicle. Historian- patient. CPT: ER phys charges level 4 (#[id number]). HISTORY OF PRESENT ILLNESS Chief Complaint: PALPITATIONS. FAST HEART RATE and ANXIETY. This started today and is still present. Modifying factors. Not worsened by anything. Not relieved by anything. It is described as a fast heart beat. He complains of dizziness. No chest pain or discomfort, difficulty breathing, sweating episodes or fainting episodes. No tingling or muscle spasms. He has had dizziness. Similar symptoms previously: None. Recent medical care: Not recently seen/assessed. REVIEW OF SYSTEMS No fever, chills, cough, orthopnea or calf pain. No sore throat, nausea, abdominal pain, black stools or difficulty with urination. No skin rash, diarrhea or bloody stools. All systems otherwise negative, except as recorded above. PAST HISTORY Hypertension. Vertigo. Diarrhea. Lifestyle / Substance Problems. Gastroesophageal Reflux. Suicidal Ideation. Atypical Chest Pain. Chest Pain of GI Origin. Mental Illness. Anxiety Reaction. Palpitations. Chest Pain. Dizziness. Abdominal Pain. Abd pain discomfort . Depression. Obsessive Compulsive Disorder. ADHD - Attention Deficit Hyperactivity Disorder. Back Pain. --00:20 Lyssa Gomez ADDITIONAL SURGERIES: Appendectomy. Septoplasty. Tendon lengthening in rt leg. Medications: SEROquel Oral. LamoTRIgine Oral. Cymbalta Oral (Capsule Delayed Release Particles 60 mg) 1 capsule. Gabapentin Oral (Capsule 300 mg) 1 capsule, daily. Paxil Oral (Tablet 20 mg) 1 tablet, daily as needed. Testosterone Cypionate Intramuscular (Solution 100 mg/mL). Vicodin Oral. Allergies: None. SOCIAL HISTORY Never smoker. No alcohol use or drug use. ADDITIONAL NOTES The nursing notes have been reviewed. PHYSICAL EXAM Vital Signs: 12/13/2016 00:21 BP: 114/56. HR: 115. RR: 18. O2 saturation: 96%. Temp: 98.1 F. Pain level now: 410. Appearance: Alert. No acute distress. Eyes: Eyes normal inspection. ENT: Dry mucous membranes present. Pharynx normal. Neck: Normal inspection. CVS: Normal heart rate and rhythm. Heart sounds normal. Pulses normal. Respiratory: No respiratory distress. Breath sounds normal. Chest nontender. Abdomen: Soft and nontender. Bowel sounds normal. Back: Normal external inspection. Skin: Skin warm. Normal skin color. No rash. Extremities: Extremities exhibit normal ROM. No lower extremity edema. Neuro: Oriented X 3. No motor deficit. No sensory deficit. LABS, X-RAYS, AND EKG EKG: No acute process. Normal sinus rhythm. Normal P waves. Normal EM. Normal QRS complex. Decreased QRS voltage in the limb leads. Normal axis. Normal ST and T waves. Prior EKG unavailable. The study has been interpreted contemporaneously. The study has been independently viewed by me. The EKG appears to be a good tracing. Chest X-ray: Normal Chest X-Ray. Laboratory Tests: CBC w Diff: (DALLIN: 12/13/2016 00:25) ( MsgRcvd 12/13/2016 00:36) Final results Test Result Flag Units (Reference) WHITE BLOOD COUNT 11.3 K/uL (4.5-11.5) RED BLOOD COUNT 4.06 L M/uL (4.50-5.90) HEMOGLOBIN 12.8 L gm/dL (13.5-17.5) HEMATOCRIT 37.7 L % (41.0-53.0) MEAN CELL VOLUME 93 fL (80-100) MEAN CORPUSCULAR HGB 32 pg (26-34) MEAN CORPUSCULAR HGB CONC 34 g/dL (31-37) RED CELL DISTRIBUTION WIDTH 13.5 % (11.6-14.8) PLATELET COUNT 188 K/uL (150-400) NEUTROPHIL % 52.2 % (50-75) LYMPH % 33.8 % (25-40) MONO % 10.6 % (3-14) EOSINOPHIL % 3.1 % (0-4) BASOPHIL % 0.3 % (0-2) Troponin-I: (DALLIN: 12/13/2016 00:03) ( MsgRcvd 12/13/2016 01:30) Final results Test Result Flag Units (Reference) TROPONIN I <0.05 ng/mL (0.00-1.5) TROPONIN REFERENCE RANGE:<0.1 NEGATIVE0.1-1.5 INDETERMINANT>1.5 POSITIVE CMP: (DALLIN: 12/13/2016 00:25) ( MsgRcvd 12/13/2016 00:51) Final results Test Result Flag Units (Reference) GLUCOSE 93 mg/dL (70-110) BUN 11 mg/dL (7-18) CREATININE 0.8 mg/dL (0.6-1.3) Estimated GFR >60 mL/min Estimated GFR- >60 mL/min Note: Persistent reduction over 3 months in eGFR<60 mL/min/1.73 m2 defines CKD. Patients with eGFR values>=60 mL/min/1.73 m2 may also have CKD if evidence ofpersistent proteinuria. Additional information may be foundat www.kidney.org. SODIUM 142 mmol/L (136-145) POTASSIUM 3.7 mmol/L (3.5-5.1) CHLORIDE 105 mmol/L (98-107) CARBON DIOXIDE 26 mmol/L (21-32) CALCIUM 8.4 L mg/dL (8.5-10.1) TOTAL PROTEIN 6.8 g/dL (6.4-8.2) ALBUMIN 3.6 g/dL (3.3-5.0) BILIRUBIN, TOTAL 0.4 mg/dL (0.0-1.0) ALKALINE PHOSPHATASE 51 U/L (46-116) AST (SGOT) 21 U/L (15-37) ALT (SGPT) 28 U/L (12-78) . PROGRESS AND PROCEDURES Course of Care: 01:57 12/13/16. Pt is orthostatic IV NS times 1 liter. Patient is stable. The patient's symptoms are now gone. Symptoms much better. Patient/family counseled. Disposition: Discharged. Condition: stable and improved. CLINICAL IMPRESSION Palpitations due to dehydration. INSTRUCTIONS No strenuous activity. Rest. Avoid stimulants (such as cigarettes, coffee, cold medicines, sinus medicines, street drugs). Drink plenty of fluids. Warnings: Further evaluation is necessary. GENERAL WARNINGS: Return or contact your physician immediately if your condition worsens or changes unexpectedly, if not improving as expected, or if other problems arise. Your Current Medications: CONTINUE TAKING THE FOLLOWING MEDICATIONS: Cymbalta Oral : Capsule Delayed Release Particles 60 mg, 1 capsule. Gabapentin Oral : Capsule 300 mg, 1 capsule daily. LamoTRIgine Oral. Paxil Oral : Tablet 20 mg, 1 tablet daily, prn. SEROquel Oral. Testosterone Cypionate Intramuscular : Solution 100 mg/mL. Vicodin Oral. Follow-up: Follow up with your doctor in one week. Call for an appointment. Understanding of the discharge instructions verbalized by patient. (Electronically signed by Alec Reno MD 12/17/2016 20:47)
--- NOTE | 2016-12-13 03:56 | ED ORDER SUMMARY ---
..... Patient: ALEXY MCKINNEY OrderSheet [facility] VisitID: [id number] [address] [place] [address] 31y, M Registration Date/Time: 12/13/2016 ORDER SHEET Weight: 120.2 kg Allergies: None GENERAL ORDERS: Forensic Sergeant (Continuous) (rapid heart rate) (00:12/13/2016 TBowen R.N. per protocol) (0:23 TBowen R.N.) CBC w Diff Urgent (00:12/13/2016 TBowen R.N. per protocol) (0:24 TBowen R.N.) (Ack 0:25 CHagerty ER Grocery Checker) CMP Urgent (00:12/13/2016 TBowen R.N. per protocol) (0:24 TBowen R.N.) (Ack 0:25 CHagerty ER Grocery Checker) Oxygen (2 L/min) (NC) (00:12/13/2016 TBowen R.N. per protocol) (0:23 TBowen R.N.) Pulse oximeter (00:12/13/2016 TBowen R.N. per protocol) (0:23 TBowen R.N.) EKG - ER Stat (00:12/13/2016 TBowen R.N. per protocol) (Ack 0:25 CHagerty ER Grocery Checker) (0:31 LMuller) - (orthostatic BP/P) (01:12/13/2016 Danny HAHN) (1:49 TBowen R.N.) Troponin-I Urgent (01:12/13/2016 Danny HAHN) (Ack 1:09 CHagerty ER Grocery Checker) (1:21 TBowen R.N.) Chest 2V Urgent (01:43 12/13/2016 Danny HAHN) (Ack 1:46 CHagerty ER Grocery Checker) (2:05 Barbara) MEDICATION ORDERS: IV FLUIDS: IV Saline Lock (01:12/13/2016 Danny HAHN) (Ack 1:20 TBowen R.N.) IV NS : initial bolus 1000 mL (1000 mL/hr), then none - for X1 (NOW); Routine (01:51 12/13/2016 Danny HAHN) (1:53 Nayeli Omalley) ORDER SHEET NOTES: [Electronically signed by Rosaura Burciaga R.N. (04:08 12/13/2016)] [Electronically signed by Alec Reno MD (20:47 12/17/2016)] [Electronically locked/signed by Rosaura Burciaga R.N. (04:08 12/13/2016)]
--- NOTE | 2016-12-13 03:56 | ED ORDER SUMMARY ---
..... Patient: ALEXY MCKINNEY OrderSheet [facility] VisitID: [id number] [address] [place] [address] 31y, M Registration Date/Time: 12/13/2016 ORDER SHEET Weight: 120.2 kg Allergies: None GENERAL ORDERS: Steel Rule Inspector (Continuous) (rapid heart rate) (00:12/13/2016 TBowen R.N. per protocol) (0:23 TBowen R.N.) CBC w Diff Urgent (00:12/13/2016 TBowen R.N. per protocol) (0:24 TBowen R.N.) (Ack 0:25 CHagerty ER Back Shoe Worker) CMP Urgent (00:12/13/2016 TBowen R.N. per protocol) (0:24 TBowen R.N.) (Ack 0:25 CHagerty ER Back Shoe Worker) Oxygen (2 L/min) (NC) (00:12/13/2016 TBowen R.N. per protocol) (0:23 TBowen R.N.) Pulse oximeter (00:12/13/2016 TBowen R.N. per protocol) (0:23 TBowen R.N.) EKG - ER Stat (00:12/13/2016 TBowen R.N. per protocol) (Ack 0:25 CHagerty ER Back Shoe Worker) (0:31 LMuller) - (orthostatic BP/P) (01:12/13/2016 Danny HAHN) (1:49 TBowen R.N.) Troponin-I Urgent (01:12/13/2016 Danny HAHN) (Ack 1:09 CHagerty ER Back Shoe Worker) (1:21 TBowen R.N.) Chest 2V Urgent (01:43 12/13/2016 Danny HAHN) (Ack 1:46 CHagerty ER Back Shoe Worker) (2:05 Barbara) MEDICATION ORDERS: IV FLUIDS: IV Saline Lock (01:12/13/2016 Danny HAHN) (Ack 1:20 TBowen R.N.) IV NS : initial bolus 1000 mL (1000 mL/hr), then none - for X1 (NOW); Routine (01:51 12/13/2016 Danny HAHN) (1:53 Nayeli Omalley) ORDER SHEET NOTES: [Electronically signed by Rosaura Burciaga R.N. (04:08 12/13/2016)] [Electronically signed by Alec Reno MD (20:47 12/17/2016)] [Electronically locked/signed by Rosaura Burciaga R.N. (04:08 12/13/2016)]
--- NOTE | 2016-12-13 03:56 | ED NURSING NOTES ---
Clinical Report - Nurses [facility] [address] [place] [address] 12/13/2016 0:15 Patient: ALEXY MCKINNEY TRIAGE Triage time 00:17. Acuity: LEVEL 3. Chief Complaint: SHORTNESS OF BREATH. --00:21 TonyaB, R.N. 00:21 12/13/16. BP: 114/56. HR: 115. RR: 18. O2 saturation: 96%. Temp: 98.1 F. Pain level now: 11/04. --00:21 TonyaB, R.N. Weight: 120.2 kg. Height/Length: 68 inches. BMI: 40.3. --00:20 TonyaB, R.N. Medications Cymbalta Oral (Capsule Delayed Release Particles 60 mg) 1 capsule. Gabapentin Oral (Capsule 300 mg) 1 capsule, daily. Paxil Oral (Tablet 20 mg) 1 tablet, daily as needed. Testosterone Cypionate Intramuscular (Solution 100 mg/mL). Vicodin Oral. --00:19 TonyaB, R.N. LamoTRIgine Oral. --00:19 TonyaB, R.N. SEROquel Oral. --00:24 TonyaB, R.N. Allergies None. --00:19 TonbarrieB, R.N. History Arrived by EMS. Historian: patient. ( pt complains of rapid heart rate and SOB). 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 See EMS report. PAST MEDICAL HX: Immunizations: up-to-date. SOCIAL HX: Never smoker. No alcohol use or drug use. No infectious disease exposure. SELF HARM ASSESSMENT: A self harm assessment was performed. The patient answered "no" to the question "Have you recently felt down, depressed, or hopeless?", "Have you noticed less interest or pleasure in doing things?", "Do you have thoughts of harming or killing yourself?", "Are you here because you tried to hurt yourself?", "Have you ever tried to hurt yourself before today?", "Have you recently had thoughts about harming or killing others?" and "Do you have any dangerous items in your possession?". FALL RISK ASSESSMENT: Fall risk assessment completed. No fall risk identified. NUTRITIONAL RISK ASSESSMENT: The nutritional risk assessment revealed no deficiencies. FUNCTIONAL ASSESSMENT: Functional assessment: no impairments noted. LEARNING NEEDS ASSESSMENT: The learning needs assessment revealed no barriers. ABUSE ASSESSMENT: Abuse assessment: The patient was asked "Do you feel safe in your home?". SKIN INTEGRITY ASSESSMENT: Skin integrity risk assessment completed. No skin integrity risk identified. --00:21 Danette Gomez. PROBLEMS: Hypertension. Vertigo. Diarrhea. Lifestyle / Substance Problems. Gastroesophageal Reflux. Suicidal Ideation. Atypical Chest Pain. Chest Pain of GI Origin. Mental Illness. Anxiety Reaction. Palpitations. Chest Pain. Dizziness. Abdominal Pain. Abd pain discomfort . Depression. Obsessive Compulsive Disorder. ADHD - Attention Deficit Hyperactivity Disorder. Back Pain. --00: Danette Goemz. ADDITIONAL SURGERIES: Appendectomy. Septoplasty. Tendon lengthening in rt leg. --00: Danette Gomez. Interventions ID band on patient. To treatment room. --00: Lyssa Gomez PHYSICAL ASSESSMENT To room via stretcher. GENERAL / NEURO / PSYCH: Alert. Oriented X 4. Appears in no acute distress. HEENT: Mucous membranes are pink. RESPIRATORY: No respiratory distress. Respirations not labored. Chest nontender. Breath sounds within normal limits. CVS: Normal sinus rhythm noted. Capillary refill less than 2 seconds. GI / : Abdomen soft and nontender. Bowel sounds within normal limits. ( pt complains of nausea). SKIN: Skin is warm and dry. Normal skin turgor. --00: Lyssa Gomez NURSING PROGRESS NOTES 00:22 12/13/2016 Site #1 started prior to arrival by EMS via IV in the left antecubital space with an 20g angiocath. --00: Danette Gomez. school photograph editor, pulse oximeter and NIBP monitor placed on patient. Patient gowned. Patient identifiers checked. Call light placed in reach. Side rails up. Bed placed in lowest position. Brakes of bed on. --00: Lyssa Gomez EKG time: (0033). EKG was performed by a tech and shown to the ED physician. --00:32 Trinity Heck Patient ID band checked for patient name and birthdate: patient confirmed. Clean catch urine collected with return of yellow-colored clear urine; sample sent to lab. Specimen labeled in the presence of the patient. --00:49 RosauraB, R.N. 01:43 12/13/16. BP: 102/60 taken while lying. HR: 105. RR: 16. O2 saturation: 97%. Temp: deferred. Pain level now deferred. --01:43 TonyaB, R.N. 01:43 12/13/16. BP: 102/53 taken while sitting. HR: 107. RR: 16. O2 saturation: 98%. Temp: deferred. --01:44 TonbarrieB, R.N. 01:44 12/13/16. BP: 110/49 taken while standing. HR: 125. RR: 17. O2 saturation: 97%. Temp: deferred. Pain level now: 0/10. --01:48 TonyaB, R.N. 01:53 12/13/2016 Started bag #1 1000 mL IV Fluids IV NS (Saline); at 1000 mL/hr over 1 hour(s) via site #1 via dial-a-flow. Allergies verified and confirmed 5 rights. IV patency established. IV site checked: no pain, redness, or swelling. IV flushed thoroughly pre- and post-medication administration. --01:53 TonbarrieB, R.N. 03:18 12/13/2016 IV Fluids IV NS Discontinued: bag #1 completed. Total amount infused: 1000 mL. IV patency established. IV site checked: no pain, redness, or swelling. IV flushed thoroughly. --03:18 TonyaB, R.N. 03:37 12/13/16. BP: 103/56 taken while lying. HR: 115. RR: 18. O2 saturation: 97%. Temp: deferred. Pain level now: 0/10. --03:40 TonyaB, R.N. 03:40 12/13/16. BP: 119/56 taken while sitting. HR: 103. RR: 18. O2 saturation: 98%. Temp: deferred. Pain level now: 0/10. --03:41 Lyssa Gomez 03:41 12/13/16. BP: 103/59 taken while standing. HR: 109. RR: 18. O2 saturation: 98%. Temp: deferred. Pain level now: 0/10. --03:42 Lyssa Gomez ( pt wants to go home at this time, aware and repeat ortho static vitals in chart at this time). --03:44 Lyssa Gomez DISPOSITION / DISCHARGE 04:08 12/13/2016 Site #1 removed upon discharge. Catheter intact. Bandaid applied. --04:08 Lyssa Gomez Departure time: 04:00. Condition at departure: improved. No learning barriers present. Discharge instructions provided and reviewed with the patient. Work note given. Patient verbalized understanding. Written instructions provided in Slovak. No warning instructions, medication instructions, treatment instructions, referrals given to the patient or diet instructions. No activity restrictions, follow up contact number given or stop smoking instructions. The patient was discharged by the physician. He was discharged home and accompanied by spouse. He left the Emergency Department ambulatory and via private vehicle. Spouse driving. FALL RISK ASSESSMENT: Fall risk assessment completed. No fall risk identified. --04:08 Lyssa Gomez 04:07 12/13/16. BP: deferred. HR: deferred. RR: deferred. O2 saturation: deferred. Temp: deferred. Pain level now deferred. --04:08 Lyssa Gomez Locked/Released at 12/13/2016 4:08 by Lyssa Gomez
--- NOTE | 2016-12-17 20:47 | ED MED RECONCILIATION SUMMARY ---
Patient: ALEXY MCKINNEY Medication Reconciliation Report [facility] VisitID: [id number] [address] [place] [address] 31y, M Registration Date/Time: 12/13/2016 Weight: 120.2 kg Height/Length: 68 in. BMI: 40.3 ALLERGIES: None The patient's Home Medications are listed below: CONTINUE TAKING THE FOLLOWING MEDICATIONS: Cymbalta Oral (60 mg) 1 capsule Gabapentin Oral (300 mg) 1 capsule, daily LamoTRIgine Oral Paxil Oral (20 mg) 1 tablet, daily SEROquel Oral Testosterone Cypionate Intramuscular (100 mg/mL) Vicodin Oral The source(s) of the original Home Medication information: Not obtained. The following Medications were given to the patient in the Emergency Department: IV NS IV Fluids bolus 0, then 1000 mL/hr, administered: 12/13/2016 1:53:00 AM The following Medications were prescribed to the patient: None.
--- NOTE | 2016-12-17 20:47 | ED MAR SUMMARY ---
..... Medication Administration Record [facility] [address] [place] [address] Patient: ALEXY MCKINNEY Visit ID: [id number] 31y, M Weight: 120.2 kg Height/Length: 68 in BMI: 40.3 ALLERGIES: None Start 01:53 12/13/2016 Patricia RNicolas, Stop 03:18 12/13/2016 Lyssa Gomez Medication Administered: IV NS (SALINE), Dose: IV Fluids over 1 hour(s), Rate: 1000 mL/hr, Dispensed: 1000 mL bag, Site: #1 left AC. Medication Ordered: IV NS : initial bolus 1000 mL (1000 mL/hr), then none - for X1 (NOW); Routine.
--- NOTE | 2016-12-17 20:47 | ED DISCHARGE INSTRUCTIONS ---
Patient: ALEXY MCKINNEY General Instructions [facility] VisitID: [id number] [address] [place] [address] 31y, M Registration Date/Time: 12/13/2016 Palpitations due to dehydration. INSTRUCTIONS No strenuous activity. Rest. Avoid stimulants (such as cigarettes, coffee, cold medicines, sinus medicines, street drugs). Drink plenty of fluids. Warnings: Further evaluation is necessary. GENERAL WARNINGS: Return or contact your physician immediately if your condition worsens or changes unexpectedly, if not improving as expected, or if other problems arise. Your Current Medications: CONTINUE TAKING THE FOLLOWING MEDICATIONS: Cymbalta Oral : Capsule Delayed Release Particles 60 mg, 1 capsule. Gabapentin Oral : Capsule 300 mg, 1 capsule daily. LamoTRIgine Oral. Paxil Oral : Tablet 20 mg, 1 tablet daily, prn. SEROquel Oral. Testosterone Cypionate Intramuscular : Solution 100 mg/mL. Vicodin Oral. Follow-up: Follow up with your doctor in one week. Call for an appointment. Understanding of the discharge instructions verbalized by patient. No strenuous activity. Rest. (Electronically signed by Alec Reno MD 12/17/2016 20:47)
--- NOTE | 2016-12-17 20:47 | ED DISCHARGE INSTRUCTIONS ---
Patient: ALEXY MCKINNEY General Instructions [facility] VisitID: [id number] [address] [place] [address] 31y, M Registration Date/Time: 12/13/2016 Palpitations due to dehydration. INSTRUCTIONS No strenuous activity. Rest. Avoid stimulants (such as cigarettes, coffee, cold medicines, sinus medicines, street drugs). Drink plenty of fluids. Warnings: Further evaluation is necessary. GENERAL WARNINGS: Return or contact your physician immediately if your condition worsens or changes unexpectedly, if not improving as expected, or if other problems arise. Your Current Medications: CONTINUE TAKING THE FOLLOWING MEDICATIONS: Cymbalta Oral : Capsule Delayed Release Particles 60 mg, 1 capsule. Gabapentin Oral : Capsule 300 mg, 1 capsule daily. LamoTRIgine Oral. Paxil Oral : Tablet 20 mg, 1 tablet daily, prn. SEROquel Oral. Testosterone Cypionate Intramuscular : Solution 100 mg/mL. Vicodin Oral. Follow-up: Follow up with your doctor in one week. Call for an appointment. Understanding of the discharge instructions verbalized by patient. No strenuous activity. Rest. (Electronically signed by Alec Reno MD 12/17/2016 20:47)
--- NOTE | 2016-12-17 20:47 | ED MED RECONCILIATION SUMMARY ---
Patient: ALEXY MCKINNEY Medication Reconciliation Report [facility] VisitID: [id number] [address] [place] [address] 31y, M Registration Date/Time: 12/13/2016 Weight: 120.2 kg Height/Length: 68 in. BMI: 40.3 ALLERGIES: None The patient's Home Medications are listed below: CONTINUE TAKING THE FOLLOWING MEDICATIONS: Cymbalta Oral (60 mg) 1 capsule Gabapentin Oral (300 mg) 1 capsule, daily LamoTRIgine Oral Paxil Oral (20 mg) 1 tablet, daily SEROquel Oral Testosterone Cypionate Intramuscular (100 mg/mL) Vicodin Oral The source(s) of the original Home Medication information: Not obtained. The following Medications were given to the patient in the Emergency Department: IV NS IV Fluids bolus 0, then 1000 mL/hr, administered: 12/13/2016 1:53:00 AM The following Medications were prescribed to the patient: None.
--- NOTE | 2016-12-17 20:47 | ED MAR SUMMARY ---
..... Medication Administration Record [facility] [address] [place] [address] Patient: ALEXY MCKINNEY Visit ID: [id number] 31y, M Weight: 120.2 kg Height/Length: 68 in BMI: 40.3 ALLERGIES: None Start 01:53 12/13/2016 Patricia RNicolas, Stop 03:18 12/13/2016 Lyssa Gomez Medication Administered: IV NS (SALINE), Dose: IV Fluids over 1 hour(s), Rate: 1000 mL/hr, Dispensed: 1000 mL bag, Site: #1 left AC. Medication Ordered: IV NS : initial bolus 1000 mL (1000 mL/hr), then none - for X1 (NOW); Routine.
== END 2016-12-13 04:00 | disposition home or self-care (01) ==
LOC: ED SRH 00:14
DX: R00.2 Palpitations (principal); E86.0 Dehydration; I10 Essential (primary) hypertension; Z79.899 Other long term (current) drug therapy
CPT/HCPCS: 90100; 90616; 95059

== ENCOUNTER 2017-02-08 11:58 | Outpatient (CLI) | payer OTHER ==
--- NOTE | 2017-02-08 13:01 | DIAGNOSTIC IMAGING REPORT ---
PROCEDURE: US SCROTUM/TESTICLE INDICATION: LEFT TESTICULAR PAIN, VASECTOMY 5DAYS. EVAL FOR TORSION TECHNIQUE: Brooks scale and color Doppler sonographic images through the scrotum were obtained. COMPARISON: None. FINDINGS: RIGHT TESTICLE: Measures 3.7 x 2.6 x 2.5 cm with normal echo structure and vascularity. Normal epididymis. No hydrocele. LEFT TESTICLE: Measures 3.8 x 2.6 x 2.2 cm with normal echo structure and vascularity. Normal epididymis. No hydrocele. Hyperemic thickened scrotal wall (9 mm). No evidence of a fluid collection. IMPRESSION: 1. Normal testicles 2. Hyperemic thickened scrotal wall suggestive of cellulitis.
== END 2017-02-08 23:00 ==
LOC: US SRH 11:58
DX: N45.2 Orchitis (principal); N50.812 Left testicular pain; Z98.52 Vasectomy status